=== PATIENT | female | born 1965 | race Two or more races ===

== ENCOUNTER 2021-03-22 23:22 | Inpatient (IN) | payer OTHER ==
[~2021-03-22] VITALS: Ht 154.9 cm; Wt 62.1 kg
--- NOTE | 2021-03-22 23:36 | NUR ---
PT BIBRA C/O NEAR SYNCOPAL EPISODE. PT AAOX4 BREATHING EVENLY AND UNLABORED. PER PT, SHE FELT "LIGHTHEADED AND NAUSEOUS, CHECKED HER BP AND IT WAS IN THE 80S". PT ATTACHED TO MONITOR AND POX. MD AT BEDSIDE. PT GIVEN BLANKET AND CALL LIGHT WITHIN REACH
--- NOTE | 2021-03-22 23:55 | NUR ---
LAB AT BEDSIDE
[2021-03-23] MEDS ORDERED: IV NS 0.9% 1,000 ML BAG IV ONE
[2021-03-23 00:11] LABS: BASOPHILS # (AUTO) 0.1 K/uL (0.0-0.2); BASOPHILS % (AUTO) 0.8 % (0.0-2.0); EOSINOPHILS % (AUTO) 3.1 % (0.0-6.0); HEMATOCRIT 29 % (33-45); HEMOGLOBIN 9.7 g/dL (11.5-14.8); LYMPHOCYTES # (AUTO) 2.6 K/uL (0.8-4.8); LYMPHOCYTES % (AUTO) 22.2 % (20.0-44.0); MEAN CORPUSCULAR HGB CONC 34 g/dl (31.0-36.0); MEAN CORPUSCULAR VOLUME 85 fL (82-100); MONOCYTES # (AUTO) 0.7 K/uL (0.1-1.30); MONOCYTES % (AUTO) 5.6 % (2.0-12.0); NEUTROPHILS % (AUTO) 68.3 % (43.0-81.0); PLATELET COUNT (AUTO) 404 K/uL (150-450); RED BLOOD CELL COUNT(AUTO) 3.37 MIL/uL (4.0-5.2); WHITE BLOOD COUNT (AUTO) 11.7 K/uL (4.3-11.0)
--- NOTE | 2021-03-23 00:22 | NUR ---
selina - [phone] kirsty [phone] - brother
--- NOTE | 2021-03-23 01:13 | NUR ---
PAGED DR MONACO FOR NEURO CONSULT
[2021-03-23 01:31] LABS: CALCIUM, SERUM 7.4 mg/dL (8.5-10.1); CREATININE 3.2 mg/dL (0.6-1.3)
[2021-03-23 01:37] LABS: ALBUMIN 2.8 g/dL (3.4-5.0); BILIRUBIN,TOTAL 0.1 mg/dL (0.2-1.0); TOTAL PROTEIN, SERUM 6.7 g/dL (6.4-8.2)
--- NOTE | 2021-03-23 01:41 | NUR ---
RE PAGED DR MONACO
[2021-03-23 01:43] LABS: POTASSIUM 4.6 mmol/L (3.5-5.1)
--- NOTE | 2021-03-23 02:01 | NUR ---
DR RESTREPO ON THE PHONE W/ DR MONACO
--- NOTE | 2021-03-23 02:16 | NUR ---
CALLED HOUSE SUP FOR BED
[2021-03-23] MEDS ORDERED: ASPIRIN 325 MG TABLET PO ONE (02:30)
--- NOTE | 2021-03-23 02:52 | NUR ---
gave report to Brien Cao rn for asher
[2021-03-23] MEDS ORDERED: ASPIRIN 325 MG TABLET ONE (02:53)
[2021-03-23] MEDS ORDERED: Z GUARD REMEDY 2 OZ OINT TP PRN (03:00)
[2021-03-23] MEDS ORDERED: MAGNESIUM HYDROXIDE 30 ML UDC PO PRN (03:00)
[2021-03-23] MEDS ORDERED: ACETAMINOPHEN 325 MG TABLET PO PRN (03:00)
[2021-03-23] MEDS ORDERED: IV NS 0.9% 1,000 ML IV ONE (03:00)
[2021-03-23] MEDS ORDERED: ZOLPIDEM TARTRATE 5 MG TABLET PO PRN (03:00)
[2021-03-23] MEDS ORDERED: ONDANSETRON HCL/PF 4 MG/2 ML VIAL IVP PRN (03:00)
[2021-03-23] MEDS ORDERED: MAG HYDROX/AL HYDROX/SIMETH 30 ML UDC PO PRN (03:00)
--- NOTE | 2021-03-23 03:05 | NUR ---
LANGUAGE THERAPIST NOTES PATIENT BROUGHT UP AT THIS TIME VIA STRETCHER. A/OX4. TAGALOG SPEAKING. NO S/S OF APPARENT DISTRESS AND DENIES PAIN AT THIS TIME. PATIENT UNABLE TO AMBULATE, BLE WEAK. TELE MONITOR READING NSR 78 BPM. PATIENT HAS TWO IV ACCESS. R.AC #20G- SL AND L.AC #20G RUNNING AT 75ML/HR ONCE. PATIENT HAS NO ADVANCED DIRECTIVES BUT WISHES TO BE FULL CODE. PER PATIENT SHE HAS NO KNOWN ALLERGIES. BELONGINGS CHECKED OFF-- PATIENT REPORTS HAVING UPPER DENTURES AND WEARS GLASSES. ID BAND ON PATIENT. SAFETY IN PLACE. DVT PUMP CONNECTED. C/O HUNGER-- GIVEN SNACKS. PATIENT ADMITTED FOR NSTEMI. V/S FOLLOWS: BP- 100/65, HR- 84, RR18, T-97.6, AND SATURATING @96% ON ROOM AIR. WILL CONTINUE TO MONITOR.
[2021-03-23 04:03] VITALS: BP 100/65
[2021-03-23 04:13] VITALS: BP 100/65
--- NOTE | 2021-03-23 05:06 | NUR ---
FORM PRESS OPERATOR NOTES PATIENT WAS CONCERN THAT FAMILY MEMBERS DO NOT KNOW WHERE SHE IS ADMITTED RIGHT NOW. PER PATIENT SHE LIVES WITH HER MOM WHO IS 80 Y/O AND SHE DOES NOT HAVE ANY CONTACT NUMBERS. PER PATIENT SHE HAS BROTHER HERE IN [place] BUT DOES NOT KNOW HIS PHONE NUMBER. PER PATIENT SHE ONLY KNOWS HER BROTHER'S NUMBER RESIDING IN [place]. CALLED KAVITHA (BROTHER IN [place]) ([phone]) AND TALKED TO HIM. MADE HIM KNOWN OF PATIENT CONDITION AND PER BROTHER, FAMILY KNOWS WHERE PATIENT IS RIGHT NOW AND BROTHER HERE IN [place] (KATHIE) IS GOING TO VISIT PATIENT. ASKED FOR KATHIE'S NUMBER ([phone]), KATHIE IS OFF AT 0530. WILL CALL LATER.
--- NOTE | 2021-03-23 05:12 | NUR ---
RN NOTE WILL PUT CONTACT NUMBER IN CHART. KATHIE (BROTHER) [phone].
--- NOTE | 2021-03-23 05:30 | NUR ---
RN NOTE LEFT A VOICEMAIL TO BROTHER, NOT ANSWERING PHONE CALL. LEFT HOSPITAL NUMBER WELL TO CALL BACK.
--- NOTE | 2021-03-23 06:46 | NUR ---
PICKLE MAKER CLOSING PATIENT IN BED A/OX4. NO S/S OF APPARENT DISTRESS. DENIES PAIN AT THIS TIME. PATIENT TELE MONITOR BEEN READING NSR 79 BPM THE WHOLE SHIFT. ALL NEEDS ATTENDED. NS @75CC/HR RUNNING STILL AT THIS TIME. ORDERED ONLY ONCE. WILL ENDORSE CARE TO MORNING SHIFT RN.
[2021-03-23 06:55] LABS: BASOPHILS % (AUTO) 0.3 % (0.0-2.0); EOSINOPHILS % (AUTO) 0.2 % (0.0-6.0); HEMATOCRIT 28 % (33-45); HEMOGLOBIN 9.5 g/dL (11.5-14.8); LYMPHOCYTES # (AUTO) 1.4 K/uL (0.8-4.8); LYMPHOCYTES % (AUTO) 10.3 % (20.0-44.0); MEAN CORPUSCULAR HGB CONC 34 g/dl (31.0-36.0); MEAN CORPUSCULAR VOLUME 86 fL (82-100); MONOCYTES # (AUTO) 0.2 K/uL (0.1-1.30); MONOCYTES % (AUTO) 1.3 % (2.0-12.0); NEUTROPHILS # (AUTO) 11.9 K/uL (1.8-8.9); NEUTROPHILS % (AUTO) 87.9 % (43.0-81.0); PLATELET COUNT (AUTO) 421 K/uL (150-450); RED BLOOD CELL COUNT(AUTO) 3.29 MIL/uL (4.0-5.2); WHITE BLOOD COUNT (AUTO) 13.6 K/uL (4.3-11.0)
[2021-03-23 07:16] LABS: CALCIUM, SERUM 7.4 mg/dL (8.5-10.1); MAGNESIUM 2.2 mg/dL (1.8-2.4); PHOSPHORUS 4.5 mg/dL (2.5-4.9); POTASSIUM 5.1 mmol/L (3.5-5.1)
--- NOTE | 2021-03-23 07:43 | NUR ---
COMPUTER PUBLISHER OPENING NOTE Patient in bed, asleep. A/O x 4. On room air, breathing evenly and unlabored. No SOB or s/s of distress noted. IV access on RAC #20, SL and AC #20 NS running at 75 ml/hr, both intact and patent. On tele monitoring showing SR at 90s. Safety precautions in place: bed inl ow, locked position, siderails up x 2, call light within reach. Will continue to monitor.
[2021-03-23 08:00] VITALS: BP 144/68
[2021-03-23] MEDS ORDERED: NPH,100I SQ (08:15)
[2021-03-23] MEDS ORDERED: LISI40TA13 PO (08:15)
[2021-03-23] MEDS ORDERED: METO25TA4 PO (08:15)
[2021-03-23] MEDS ORDERED: ATOR40TA PO (08:15)
[2021-03-23] MEDS ORDERED: NIFE60TA73 PO (08:15)
[2021-03-23] MEDS: ASPIRIN 81 MG TAB.CHEW PO SCH (08:27)
[2021-03-23] MEDS: METOPROLOL SUCCINATE 25 MG TAB.SR.24H PO SCH (08:28)
[2021-03-23] MEDS: NIFEdipine XL (30MG) 30 MG TAB PO SCH (08:29)
--- NOTE | 2021-03-23 12:43 | NUR ---
RN NOTE MD ORDERED MODERATE SLIDING SCALE FOR COVERAGE DURING PATIENT'S STAY. CRITICAL LAB VALUE OF TROPONIN 4.045 REPLAYED TO MD AND CARDIOLOGY. WILL CONTINUE TO MONITOR
--- NOTE | 2021-03-23 12:50 | NUR ---
RN NOTE DR EUGENE GAVE NEW ORDER TO START HEPARIN DRIP PER PROTOCOL
[2021-03-23] MEDS ORDERED: DEXTROSE 50%-WATER 50 ML DISP.SYRIN IV PRN (13:00)
[2021-03-23] MEDS ORDERED: HEPARIN SODIUM, PORCINE 5000 UNITS/1 ML VIAL IV ONE (14:30)
[2021-03-23] MEDS: HEPARIN INFUSION/D5W 500 ML IV PRN (15:09)
[2021-03-23 16:00] VITALS: BP 142/62
[2021-03-23] MEDS: BLOOD SUGAR DIAGNOSTIC 1 EACH STRIP VI SCH ×2 (17:01→22:14)
[2021-03-23] MEDS: ATORVASTATIN 40 MG TABLET PO SCH (17:01)
[2021-03-23] MEDS: INSULIN REGULAR, HUMAN 100 UNIT/ML 3 ML VIAL SQ PRN (17:01)
--- NOTE | 2021-03-23 18:37 | NUR ---
CAD ADMINISTRATOR CLOSING NOTE Patient in bed, awake. A/O x 4, able to make needs known. Stable on room air, breathing evenly and unlabored. No SOB or s/s of distress noted. IV access LAC #20G intact and patent and RAC #20G on Heparin drip at 930 units/hr. On tele monitoring showing SR at 87. Due meds given. Safety precautions maintained: bed in low, locked position, siderails up x 2, call light within reach. Will endorse to table games shift manager nurse for GABRIELLE.
--- NOTE | 2021-03-23 19:30 | NUR ---
FORK REPAIRER OPENING NOTES PATIENT AWAKE IN BED, ALERT/ORIENTED X 4, PT ABLE TO MAKE NEEDS KNOWN. PATIENT DENIES PAIN AT THIS TIME. PT STABLE ON RA, NO S/S OF DISTRESS OR SOB NOTED, BREATHING EVEN AND UNLABORED. IV ACCESS ON LEFT AC #20G INTACT AND SALINE LOCKED, RIGHT AC #20G INTACT AND RUNNING HEPARIN DRIP AT 930 UNITS/HR. PATIENT ON EXTERNAL STRING WINDING MACHINE OPERATOR READING SINUS RHYTHM, HR: 70'S. SAFETY PRECAUTIONS IN PLACE: CALL LIGHT WITHIN REACH, BED LOCKED IN LOW POSITION, SIDE RAILS UP X 2, BED ALARM ON, CALL LIGHT AND TABLE WITHIN REACH. WILL CONTINUE TO MONITOR PATIENT
[2021-03-23 20:00] VITALS: BP 140/78
[2021-03-23 20:03] LABS: THYROID STIMULATING HORMONE 2.528 uIU/mL (0.358-3.74)
[2021-03-23] MEDS: *INSULIN REGULAR(HUMULIN R)HUM 100 UNIT/ML VIAL SQ PRN (22:16)
--- NOTE | 2021-03-23 23:00 | NUR ---
LOAN COUNSELOR NOTE APTT = 57.9. NO CHANGES PER WEIGHT BASED HEPARIN PROTOCOL. NEXT APTT LAB DRAW SCHEDULED FOR 03/24/21 10 AM
[2021-03-24] VITALS: BP 137/76
[2021-03-24 04:00] VITALS: BP 142/70
--- NOTE | 2021-03-24 06:19 | NUR ---
SLOT ATTENDANT CLOSING NOTES PATIENT SLEEPING IN BED, PT APPEARS COMFORTABLE AND NOT IN ANY DISTRESS. NO SIGNIFICANT CHANGES THROUGHOUT SHIFT. PT STABLE ON RA, NO S/S OF DISTRESS OR SOB NOTED, BREATHING EVEN AND UNLABORED. IV ACCESS ON LEFT AC #20G INTACT AND SALINE LOCKED, RIGHT AC #20G INTACT AND RUNNING HEPARIN DRIP AT 930 UNITS/HR. PATIENT ON EXTERNAL SUPERINTENDENT DIVISION READING SINUS RHYTHM, HR: 66. MEDICATIONS GIVEN ORDERED, PT NEEDS MET THROUGHOUT SHIFT. SAFETY PRECAUTIONS IN PLACE: CALL LIGHT WITHIN REACH, BED LOCKED IN LOW POSITION, SIDE RAILS UP X 2, BED ALARM ON, CALL LIGHT AND TABLE WITHIN REACH. WILL ENDORSE TO DAY SHIFT NURSE FOR CONTINUITY OF CARE
[2021-03-24 06:34] LABS: BASOPHILS # (AUTO) 0.1 K/uL (0.0-0.2); BASOPHILS % (AUTO) 1.2 % (0.0-2.0); HEMATOCRIT 27 % (33-45); LYMPHOCYTES # (AUTO) 3.4 K/uL (0.8-4.8); LYMPHOCYTES % (AUTO) 32.3 % (20.0-44.0); MEAN CORPUSCULAR HGB CONC 34 g/dl (31.0-36.0); MEAN CORPUSCULAR VOLUME 88 fL (82-100); MONOCYTES # (AUTO) 0.6 K/uL (0.1-1.30); MONOCYTES % (AUTO) 5.4 % (2.0-12.0); NEUTROPHILS % (AUTO) 57.1 % (43.0-81.0); PLATELET COUNT (AUTO) 355 K/uL (150-450); RED BLOOD CELL COUNT(AUTO) 3.05 MIL/uL (4.0-5.2); WHITE BLOOD COUNT (AUTO) 10.5 K/uL (4.3-11.0)
[2021-03-24] MEDS: BLOOD SUGAR DIAGNOSTIC 1 EACH STRIP VI SCH ×4 (07:07→21:27)
--- NOTE | 2021-03-24 07:10 | NUR ---
RN NOTES PATIENT WAS SEEN IN BED RESTING, EYES CLOSED, ABLE TO BE AWAKENED. A/O X4, ABLE TO MAKE NEEDS KNOWN. BREATHING EVEN AND UNLABORED, TOLERATING ROOM AIR. IV LINE INTACT AND PATENT. HEPARIN DRIP CURRENTLY INFUSING AT 930U/HR; NO BLEEDING NOTED. PATIENT ABLE TO AMBULATE W/ SBA. SAFETY MEASURES IN PLACE. WILL CONTINUE TO MONITOR.
[2021-03-24 07:22] LABS: ALBUMIN 2.4 g/dL (3.4-5.0); BILIRUBIN,TOTAL 0.2 mg/dL (0.2-1.0); CALCIUM, SERUM 7.8 mg/dL (8.5-10.1); CREATININE 2.6 mg/dL (0.6-1.3); MAGNESIUM 2.5 mg/dL (1.8-2.4); PHOSPHORUS 5.8 mg/dL (2.5-4.9); POTASSIUM 4.4 mmol/L (3.5-5.1); TOTAL PROTEIN, SERUM 6.2 g/dL (6.4-8.2)
[2021-03-24] MEDS: ASPIRIN 81 MG TAB.CHEW PO SCH (08:13)
[2021-03-24] MEDS: METOPROLOL SUCCINATE 25 MG TAB.SR.24H PO SCH (08:14)
[2021-03-24] MEDS: NIFEdipine XL (30MG) 30 MG TAB PO SCH (08:14)
[2021-03-24 08:38] VITALS: BP 141/74
--- NOTE | 2021-03-24 09:20 | NUR ---
RN NOTES DR. GARCIA MADE AWARE OF TROPONIN RESULT; ALREADY SEEN AND WILL DISCUSS W/ DR. EUGENE.
--- NOTE | 2021-03-24 09:30 | NUR ---
RN NOTES PATIENT SEEN BY DR. GARCIA AND MADE AWARE OF PLAN OF CARE
[2021-03-24] MEDS: INSULIN REGULAR, HUMAN 100 UNIT/ML 3 ML VIAL SQ PRN ×2 (12:01→17:45)
--- NOTE | 2021-03-24 13:30 | NUR ---
RN NOTES RECEIVED PTT RESULT OF 53.8. CONTINUE SAME RATE OF 930U/HR PER HEPARIN PROTOCOL, NEXT PTT 03/25/21 IN AM. NO S/SX OF BLEEDING. WILL CONTINUE TO MONITOR.
[2021-03-24 16:00] VITALS: BP 134/74
[2021-03-24] MEDS: ATORVASTATIN 40 MG TABLET PO SCH (17:08)
[2021-03-24] MEDS: HEPARIN INFUSION/D5W 500 ML IV PRN (18:03)
--- NOTE | 2021-03-24 19:44 | NUR ---
RN NOTES PATIENT IN BED RESTING, AWAKE AND VERBALLY RESPONSIVE. BREATHING EVEN AND UNLABORED. CONTINUES ON HEPARIN DRIP W/ CURRENT RATE W/O CHANGES. DUE MEDS GIVEN. AMBULATES TO BATHROOM W/ STEADY GAIT. SAFETY MEASURES MAINTAINED. ENDORSED TO DIRECTOR OF PLANT OPERATIONS RN FOR GABRIELLE.
[2021-03-24 20:00] VITALS: BP 147/74
[2021-03-24] MEDS ORDERED: METOPROLOL TARTRATE 50 MG TABLET PO SCH (21:00)
[2021-03-25] VITALS (7 sets, daily range): BP systolic 137–150; BP diastolic 60–76
--- NOTE | 2021-03-25 06:00 | NUR ---
CLAY DRY PRESS HELPER NOTES BS CHECKED 155. PT REFUSED TO HAVE INSULIN AT THIS TIME. PT SAID "I JUST HAD CRACKERS AND APPLE JUICE BECAUSE I THINK MY SUGAR WAS LOW." WILL CONTINUE TO MONITOR.
--- NOTE | 2021-03-25 06:01 | NUR ---
LEATHER DRIER NOTES AWAKE & RESPONSIVE. NOT IN ANY DISTRESS. NO SOB NOTED. DENIES ANY PAIN OR DISCOMFORT AT THIS TIME. ON TELE SR @ 76 WITH HEPARIN DRIP INFUSING WELL. MONITORED ACCORDINGLY. CALL LIGHT WITHIN REACH. BED IN LOWEST POSITION. SR UP X 2 FOR SAFETY. WILL ENDORSE TO NEXT SHIFT.
[2021-03-25] MEDS: BLOOD SUGAR DIAGNOSTIC 1 EACH STRIP VI SCH ×4 (06:26→21:29)
[2021-03-25 07:01] LABS: BASOPHILS # (AUTO) 0.1 K/uL (0.0-0.2); BASOPHILS % (AUTO) 0.6 % (0.0-2.0); EOSINOPHILS % (AUTO) 2.3 % (0.0-6.0); HEMATOCRIT 27 % (33-45); HEMOGLOBIN 9.1 g/dL (11.5-14.8); LYMPHOCYTES # (AUTO) 2.1 K/uL (0.8-4.8); LYMPHOCYTES % (AUTO) 17.8 % (20.0-44.0); MEAN CORPUSCULAR HGB CONC 34 g/dl (31.0-36.0); MEAN CORPUSCULAR VOLUME 86 fL (82-100); MONOCYTES # (AUTO) 0.5 K/uL (0.1-1.30); MONOCYTES % (AUTO) 4.5 % (2.0-12.0); NEUTROPHILS # (AUTO) 8.7 K/uL (1.8-8.9); NEUTROPHILS % (AUTO) 74.8 % (43.0-81.0); PLATELET COUNT (AUTO) 336 K/uL (150-450); RED BLOOD CELL COUNT(AUTO) 3.13 MIL/uL (4.0-5.2); WHITE BLOOD COUNT (AUTO) 11.6 K/uL (4.3-11.0)
--- NOTE | 2021-03-25 07:11 | NUR ---
RN NOTES PATIENT WAS SEEN IN BED RESTING, EYES CLOSED, ABLE TO BE AWAKENED. A/O X4, ABLE TO MAKE NEEDS KNOWN. BREATHING EVEN AND UNLABORED, TOLERATING ROOM AIR. IV LINE INTACT AND PATENT. HEPARIN DRIP CURRENTLY INFUSING AT 930U/HR; NO BLEEDING NOTED. SAFETY MEASURES IN PLACE. WILL CONTINUE TO MONITOR.
[2021-03-25 07:21] LABS: ALBUMIN 2.4 g/dL (3.4-5.0); BILIRUBIN,TOTAL 0.2 mg/dL (0.2-1.0); CALCIUM, SERUM 7.5 mg/dL (8.5-10.1); CREATININE 2.4 mg/dL (0.6-1.3); MAGNESIUM 2.2 mg/dL (1.8-2.4); PHOSPHORUS 4.3 mg/dL (2.5-4.9); POTASSIUM 4.2 mmol/L (3.5-5.1); TOTAL PROTEIN, SERUM 6.3 g/dL (6.4-8.2)
--- NOTE | 2021-03-25 08:07 | NUR ---
RN NOTES RECEIVED PTT RESULT OF 51.8. NO CHANGE IN RATE PER HEPARIN PROTOCOL FOR ACS; CONTINUE SAME RATE OF 930 UNITS/HR. PTT ON 03/26/21 IN AM. NO S/SX OF BLEEDING. PHARMACY MADE AWARE.
[2021-03-25] MEDS: ASPIRIN 81 MG TAB.CHEW PO SCH (08:32)
[2021-03-25] MEDS: NIFEdipine XL (30MG) 30 MG TAB PO SCH (08:33)
[2021-03-25] MEDS: METOPROLOL TARTRATE 50 MG TABLET PO SCH ×2 (08:34→21:29)
[2021-03-25] MEDS: INSULIN REGULAR, HUMAN 100 UNIT/ML 3 ML VIAL SQ PRN ×2 (12:17→17:44)
[2021-03-25] MEDS: ATORVASTATIN 40 MG TABLET PO SCH (17:35)
[2021-03-25] MEDS: HEPARIN INFUSION/D5W 500 ML IV PRN (18:42)
--- NOTE | 2021-03-25 18:58 | NUR ---
RN NOTES PATIENT IN BED RESTING, AWAKE AND VERBALLY RESPONSIVE. BREATHING EVEN AND UNLABORED. CONTINUES ON HEPARIN DRIP W/ CURRENT RATE W/O CHANGES. DUE MEDS GIVEN. AMBULATES TO BATHROOM W/ STEADY GAIT. TRANSFERRED TO ROOM 326-1. SAFETY MEASURES MAINTAINED. WILL ENDORSE TO FURNITURE FINISHER RN FOR GABRIELLE.
--- NOTE | 2021-03-25 19:10 | NUR ---
RN NOTES RECEIVED REPORT FROM MORNING NURSE. PATIENT IN BED A/O X4 ABLE TO MAKE NEEDS KNOWN. WITH IV ACCESS ON L AC PATENT FLUSHES WELL. WITH ON GOING HEPARIN DRIP AT 930 UNITS/HR AT 18.6 ML/HR. NO BLEEDING NOTED. NO SOB, NO DISTRESS, NO PAIN AT THIS TIME. ALL SAFETY MEASURES IN PLACE, HOB ELEVATED, BED ON LOWEST POSITION AND LOCKED. CALL LIGHT WITHIN REACH. WILL CONTINUE TO MONITOR CLOSELY.
[2021-03-25] MEDS: *INSULIN REGULAR(HUMULIN R)HUM 100 UNIT/ML VIAL SQ PRN (21:33)
[2021-03-26] VITALS (8 sets, daily range): BP systolic 128–148; BP diastolic 48–67
--- NOTE | 2021-03-26 06:50 | NUR ---
RN NOTES PATIENT IN BED NO SOB, NO DISTRESS. STILL ON CONTINUOS HEPARIN DRIP AT 930 UNITS/HR AT 18.6 CC/HR. NO BLEEDING NOTED. ALL DUE MEDS GIVEN ORDERED. ALL SAFETY MEASURES IN PLACE, HOB ELEVATED, BED IN LOWEST POSITION AND LOCKED. ALL NEEDS ATTENDED PROMPTLY. ENDORSED
--- NOTE | 2021-03-26 07:30 | NUR ---
RN OPENING TELE NOTES; RECEIVED PATIENT IN BED AWAKE. ALERT AND ORIENTED TIMES 4.BREATHS IN ROOM AIR WITHOUT ANY DIFFICULTY. NO SHORTNESS OF BREATH, NO SOB NOTED. TELE RS=64.ON HEPARIN DRIP , NO BLEEDING NOTED.IV SITE ON THE LEFT HAND G20 INTACT.NO BLEEDING NO SWELLING NOTED.SAFETY PRECAUTIONS IN PLACE. BED IN LOWEST POSITION AND LOCKED, TABLE AND CALL LIGHT IN REACH. WILL CONTINUE TO MONITOR.
[2021-03-26 07:35] LABS: BASOPHILS # (AUTO) 0.1 K/uL (0.0-0.2); BASOPHILS % (AUTO) 0.7 % (0.0-2.0); EOSINOPHILS % (AUTO) 1.9 % (0.0-6.0); HEMATOCRIT 27 % (33-45); HEMOGLOBIN 9.2 g/dL (11.5-14.8); LYMPHOCYTES # (AUTO) 2.3 K/uL (0.8-4.8); LYMPHOCYTES % (AUTO) 20.3 % (20.0-44.0); MEAN CORPUSCULAR HGB CONC 33 g/dl (31.0-36.0); MEAN CORPUSCULAR VOLUME 85 fL (82-100); MONOCYTES # (AUTO) 0.6 K/uL (0.1-1.30); MONOCYTES % (AUTO) 5.2 % (2.0-12.0); NEUTROPHILS # (AUTO) 8.3 K/uL (1.8-8.9); NEUTROPHILS % (AUTO) 71.9 % (43.0-81.0); PLATELET COUNT (AUTO) 335 K/uL (150-450); RED BLOOD CELL COUNT(AUTO) 3.23 MIL/uL (4.0-5.2); WHITE BLOOD COUNT (AUTO) 11.5 K/uL (4.3-11.0)
[2021-03-26] MEDS: BLOOD SUGAR DIAGNOSTIC 1 EACH STRIP VI SCH ×4 (07:43→21:03)
[2021-03-26] MEDS: INSULIN REGULAR, HUMAN 100 UNIT/ML 3 ML VIAL SQ PRN (07:44)
[2021-03-26] MEDS: HEPARIN INFUSION/D5W 500 ML IV PRN ×2 (08:25→21:52)
[2021-03-26 08:35] LABS: CALCIUM, SERUM 8.3 mg/dL (8.5-10.1); CREATININE 2.4 mg/dL (0.6-1.3); MAGNESIUM 2.3 mg/dL (1.8-2.4); PHOSPHORUS 5.5 mg/dL (2.5-4.9); POTASSIUM 4.1 mmol/L (3.5-5.1)
[2021-03-26] MEDS: ASPIRIN 81 MG TAB.CHEW PO SCH (09:15)
[2021-03-26] MEDS: METOPROLOL TARTRATE 50 MG TABLET PO SCH ×2 (09:16→20:50)
[2021-03-26] MEDS: NIFEdipine XL (30MG) 30 MG TAB PO SCH (09:16)
[2021-03-26] MEDS ORDERED: LOPERAMIDE HCL (2 MG CAP) 2 MG CAPSULE PO PRN (10:30)
--- NOTE | 2021-03-26 11:00 | NUR ---
RN NOTES PATIENT HAS HAD LOOSE BOWEL MOVEMENT X 3 IN AM AND X3 LAST NIGHT, DR. GARCIA MADE AWARE WITH ORDER MADE AND CARRIED OUT.
[2021-03-26] MEDS: *INSULIN REGULAR(HUMULIN R)HUM 100 UNIT/ML VIAL SQ PRN ×2 (17:42→21:04)
[2021-03-26] MEDS: ATORVASTATIN 40 MG TABLET PO SCH (18:17)
--- NOTE | 2021-03-26 18:34 | NUR ---
RN CLOSING TELE NOTES; PATIENT IN BED AWAKE. ALERT AND ORIENTED TIMES 4.BREATHS IN ROOM AIR WITHOUT ANY DIFFICULTY. NO SHORTNESS OF BREATH, NO SOB NOTED. TELE RS=73. PATIENT ON HEPARIN DRIP @ 930 UNITS /HR-18.6ML/HR, .IV SITE ON THE LEFT HAND G20 INTACT.NO BLEEDING NO SWELLING NOTED. NO SIGNS AND SYMPTOMS OF BLEEDING NOTED .SAFETY PRECAUTIONS IN PLACE. BED IN LOWEST POSITION AND LOCKED, TABLE AND CALL LIGHT IN REACH. DUE MEDS GIVEN .ALL NEEDS ATTENDED. WILL ENDORSE TO ONCOMING NURSE FOR GABRIELLE.
[2021-03-26 19:15] LABS: BILIRUBIN,URINE NEGATIVE (NEGATIVE); COLOR,URINE YELLOW (YELLOW); LEUKOCYTE ESTERASE ,URINE NEGATIVE (NEGATIVE); NITRITE, URINE NEGATIVE (NEGATIVE); PROTEIN,URINE >=300 mg/dl (NEGATIVE); UGLUCOSE 100 MG/DL mg/dL (NEGATIVE); UROBILINOGEN,URINE 0.2 EU/dL (0.2)
[2021-03-26 19:28] LABS: CREATININE, URINE 103.6 MG/DL (30.0-125.0); URINE TOTAL PROTEIN 306.5 mg/dL (0-11.9)
[2021-03-26 19:35] LABS: BACTERIA,URINE 1+ /HPF (None Seen); RBC,URINE 0-2 /HPF (0-2)
[2021-03-26 19:36] LABS: HYALINE CASTS, URINE Few /LPF (None Seen); MUCUS,URINE Few /LPF (None Seen); SQUAMOUS EPITHELIAL CELL,UR Moderate /HPF (None Seen); URINE AMORPHOUS URATE Moderate /HPF (None Seen)
--- NOTE | 2021-03-26 19:40 | NUR ---
TELE/RN OPENING NOTE RECEIVED PATIENT SLEEPING IN BED. ALERT AND ORIENTED X 4. ABLE TO MAKE NEEDS KNOWN. DENIES PAIN AT THIS TIME. CONTINUES ON ROOM AIR WITH NO S/SX OF RESPIRATORY DISTRESS NOTED. IV ACCESS TO LEFT AC #20G INTACT AND PATENT. CONTINUES ON IV HEPARIN DRIP @ 930UNITS/HR WITH NO S/SX OF BLEEDING NOTED. PATIENT IS AMBULATORY WITH STEADY GAIT. CALL LIGHT WITHIN REACH. ASPIRATION, FALL AND SAFETY PRECAUTIONS MAINTAINED. WILL CONTINUE TO MONITOR.
--- NOTE | 2021-03-26 21:00 | NUR ---
TELE/RN NOTE PATIENTS BLOOD GLUCOSE LEVEL IS 136. PATIENT REFUSING INSULINS SLIDING SCALE AT THIS TIME. EXPLAINED RISKS AND BENEFITS WITH PATIENT CONTINUING TO REFUSE. WILL CONTINUE TO MONITOR.
[2021-03-27] VITALS (10 sets, daily range): BP systolic 119–143; BP diastolic 60–74
[2021-03-27] MEDS: BLOOD SUGAR DIAGNOSTIC 1 EACH STRIP VI SCH ×4 (06:25→21:41)
--- NOTE | 2021-03-27 06:38 | NUR ---
TELE/RN CLOSING NOTE PATIENT CURRENTLY SLEEPING IN BED. ALERT AND ORIENTED X 4. ABLE TO MAKE NEEDS KNOWN. DENIES PAIN AT THIS TIME. CONTINUES ON ROOM AIR WITH NO S/SX OF RESPIRATORY DISTRESS NOTED. IV ACCESS TO LEFT AC #20G INTACT AND PATENT. CONTINUES ON IV HEPARIN DRIP @ 930UNITS/HR WITH NO S/SX OF BLEEDING NOTED. PATIENT IS AMBULATORY WITH STEADY GAIT. CALL LIGHT WITHIN REACH. ASPIRATION, FALL AND SAFETY PRECAUTIONS MAINTAINED. WILL ENDORSE PLAN OF CARE TO ONCOMING SHIFT.
[2021-03-27 06:50] LABS: BASOPHILS # (AUTO) 0.1 K/uL (0.0-0.2); BASOPHILS % (AUTO) 0.7 % (0.0-2.0); EOSINOPHILS % (AUTO) 3.5 % (0.0-6.0); HEMATOCRIT 26 % (33-45); HEMOGLOBIN 8.8 g/dL (11.5-14.8); LYMPHOCYTES % (AUTO) 35.9 % (20.0-44.0); MEAN CORPUSCULAR HGB CONC 33 g/dl (31.0-36.0); MEAN CORPUSCULAR VOLUME 86 fL (82-100); MONOCYTES # (AUTO) 0.4 K/uL (0.1-1.30); MONOCYTES % (AUTO) 4.9 % (2.0-12.0); NEUTROPHILS # (AUTO) 4.6 K/uL (1.8-8.9); PLATELET COUNT (AUTO) 321 K/uL (150-450); RED BLOOD CELL COUNT(AUTO) 3.06 MIL/uL (4.0-5.2); WHITE BLOOD COUNT (AUTO) 8.4 K/uL (4.3-11.0)
[2021-03-27 06:57] LABS: CALCIUM, SERUM 8.3 mg/dL (8.5-10.1); CREATININE 2.5 mg/dL (0.6-1.3); POTASSIUM 4.3 mmol/L (3.5-5.1)
--- NOTE | 2021-03-27 07:25 | NUR ---
FAMILY PRESERVATION WORKER OPENING NOTES RECEIVED PT IN BED RESTING WITH NO S/SX OF ACUTE RESPIRATORY DISTRESS. PT HAS A L AC 20 G RUNNING HEPARIN @930 UNITS/HR. SAFETY MEASURES IN PLACE WITH BED IN LOWEST LOCKED POSITION, SIDE RAILS UP X3, AND CALL LIGHT WITHIN REACH.
[2021-03-27] MEDS: ASPIRIN 81 MG TAB.CHEW PO SCH (09:06)
[2021-03-27] MEDS: NIFEdipine XL (30MG) 30 MG TAB PO SCH (09:06)
[2021-03-27] MEDS: METOPROLOL TARTRATE 50 MG TABLET PO SCH ×2 (09:07→21:10)
--- NOTE | 2021-03-27 11:07 | NUR ---
ENTRY LEVEL ACCOUNTING CLERK NOTE LAB CALLED WITH TROPONIN LEVEL 10.677
[2021-03-27] MEDS: *INSULIN REGULAR(HUMULIN R)HUM 100 UNIT/ML VIAL SQ PRN ×3 (11:55→21:43)
[2021-03-27] MEDS: ATORVASTATIN 40 MG TABLET PO SCH (17:26)
--- NOTE | 2021-03-27 18:52 | NUR ---
REHAB ASSISTANT CLOSING NOTE PT RESTING COMFORTABLY IN SEMI-FOWLERS POSITION ON RA WITH NO S/SX OF ACUTE RESPIRATORY DISTRESS AT THIS TIME. PT HAS HEPARIN RUNNING @930U/HR PER PROTOCOL, TO BE TURNED OFF @0500 03/28. PROCEDURAL CONSENT SIGNED IN THE CHART AND PT IS NPO AFTER MIDNIGHT EXCEPT MEDS. SAFETY MEASURES IN PLACE WITH BED IN LOWEST LOCKED POSITION, CALL LIGHT WITHIN REACH AND SIDE RAILS UP X2.
--- NOTE | 2021-03-27 19:20 | NUR ---
television writer opening notes Received Pt from morning nurse. Pt is sitting in bed comfortably watching TV. Pt is alert and orientedX4. Respiration is normal in room air. No SOB. No S/S of distress noted. VS is stable. Tele monitor showed SR hr at 75. IV site at LAC# 20 is clean, intact and infuising well Heparin drip @ 930 units/hr. Safety precautions is maintained. Bed at low position, brakes locked, head of bed elevated, side rails upX3 and call light is within reach. Will continue to monitor.
--- NOTE | 2021-03-27 21:43 | NUR ---
RN notes Pt's blood sugar HS is 134. Held per Pt's request. Pt is going for procedure in am. Will continue to monitor.
--- NOTE | 2021-03-27 22:53 | NUR ---
RN notes Pt signed the consent for Left heart cardiac catherization. Pt verbalize understanding.
[2021-03-28] VITALS: BP 131/67
--- NOTE | 2021-03-28 | NUR ---
RN notes Pt is NPO. Pt verbalize understanding. Will continue to monitor.
[2021-03-28] MEDS: HEPARIN INFUSION/D5W 500 ML IV PRN (00:04)
[2021-03-28 04:00] VITALS: BP 142/72
[2021-03-28 04:07] VITALS: BP 142/72
--- NOTE | 2021-03-28 05:00 | NUR ---
RN notes Heparin drip stop at 0500 per MD ordered. Charge nurse is aware and informed. Pt is aware and informed.
--- NOTE | 2021-03-28 05:39 | NUR ---
RN notes Received a phone call from tanbark laborer [employer] to get INR stat. MD Ordered PT/INR. Charge nurse is aware and informed.
--- NOTE | 2021-03-28 06:00 | NUR ---
RN notes OR nurses from cath lab radiology technician at the bedside with Pt.
[2021-03-28 06:19] LABS: BASOPHILS # (AUTO) 0.1 K/uL (0.0-0.2); BASOPHILS % (AUTO) 0.7 % (0.0-2.0); EOSINOPHILS % (AUTO) 3.6 % (0.0-6.0); HEMATOCRIT 26 % (33-45); LYMPHOCYTES % (AUTO) 29.7 % (20.0-44.0); MEAN CORPUSCULAR HGB CONC 34 g/dl (31.0-36.0); MEAN CORPUSCULAR VOLUME 85 fL (82-100); MONOCYTES # (AUTO) 0.5 K/uL (0.1-1.30); NEUTROPHILS # (AUTO) 6.1 K/uL (1.8-8.9); PLATELET COUNT (AUTO) 362 K/uL (150-450); RED BLOOD CELL COUNT(AUTO) 3.09 MIL/uL (4.0-5.2)
[2021-03-28 06:30] LABS: CALCIUM, SERUM 7.2 mg/dL (8.5-10.1); CREATININE 2.4 mg/dL (0.6-1.3)
--- NOTE | 2021-03-28 06:30 | NUR ---
RN notes Pt is going to hemodialysis lab technician with 2 RN, Seth RN, and AMALIA Hough. VS is stable. Consent is signed and check list is done. NPO since midnight.
[2021-03-28] MEDS: INSULIN REGULAR, HUMAN 100 UNIT/ML 3 ML VIAL SQ PRN (06:36)
[2021-03-28] MEDS: BLOOD SUGAR DIAGNOSTIC 1 EACH STRIP VI SCH ×3 (06:36→17:29)
[2021-03-28] MEDS ORDERED: IV NS 0.9% 1,000 ML ONE (06:42)
[2021-03-28] MEDS ORDERED: FENTANYL PF 100MCG/2ML AMPUL ONE (06:42)
[2021-03-28] MEDS ORDERED: MIDAZOLAM HCL 2 MG/2ML VIAL ONE (06:42)
[2021-03-28] MEDS ORDERED: LIDOCAINE HCL/MPF 1% 30 ML VIAL IJ ONE (06:43)
[2021-03-28] MEDS ORDERED: IODIXANOL 150 ML IV ONE (06:43)
[2021-03-28] MEDS ORDERED: NITROGLYCERIN IN 5 % DEXTROSE 250 ML IV ONE (06:45)
--- NOTE | 2021-03-28 07:00 | NUR ---
television schedule coordinator closing notes Endorsed to morning nurse Pt is in foundry laborer coreroom.
[2021-03-28 08:00] VITALS: BP 145/69
--- NOTE | 2021-03-28 08:15 | NUR ---
NETWORKS COMPUTER CONSULTANT OPENING NOTES RECEIVED PATIENT FROM [facility] ENDORSED BY NURSE BOLDEN VIA HOSPITAL BED. PATIENT IS AWAKE AND A/O X4. ON ROOM AIR TOLERATING WELL. NO SOB NOTED. NOT IN DISTRESS. WITH STABLE VITAL SIGNS. WITH IV ACCESS AT LEFT AC G20 WITH NS AT 50ML/HR FOR 6HRS ORDERED. DISCONTINUED HEPARIN DRIP. ON TELEMONITOR CURRENTLY READING SINUS RHYTHM AT 73BPM. SAFETY MEASURES IN PLACE. CALL LIGHT WITHIN REACH. BED ON LOWEST AND LOCKED POSITION, SIDE RAILS UP X2. WILL CONTINUE TO MONITOR.
--- NOTE | 2021-03-28 08:35 | NUR ---
RN NOTE VITAL SIGNS CHECKED- STABLE. REMOVED AIR FROM TR BAND AT 3ML. TR BAND IS INTACT. SPO2 95% TAKEN AT RIGHT INDEX FINGER OF ACCESS SITE. NO BLEEDING OCCURS DURING REMOVAL. [facility] WNL. WILL MONITOR.
[2021-03-28] MEDS: METOPROLOL TARTRATE 50 MG TABLET PO SCH (08:50)
[2021-03-28] MEDS: ASPIRIN 81 MG TAB.CHEW PO SCH (08:50)
[2021-03-28] MEDS: NIFEdipine XL (30MG) 30 MG TAB PO SCH (08:50)
--- NOTE | 2021-03-28 08:50 | NUR ---
RN NOTE VITAL SIGNS CHECKED- STABLE. REMOVED AIR FROM TR BAND AT 3ML FOR THE SECOND TIME. TR BAND IS INTACT. SPO2 95% TAKEN AT RIGHT INDEX FINGER OF ACCESS SITE. NO BLEEDING OCCURS DURING REMOVAL. [facility] WNL. WILL MONITOR.
--- NOTE | 2021-03-28 09:05 | NUR ---
RN NOTE VITAL SIGNS CHECKED- STABLE. REMOVED AIR FROM TR BAND AT 3ML FOR THE 3RD TIME. TR BAND IS INTACT. SPO2 96% TAKEN AT RIGHT INDEX FINGER OF ACCESS SITE. NO BLEEDING OCCURS DURING REMOVAL. [facility] WNL. WILL MONITOR.
--- NOTE | 2021-03-28 09:20 | NUR ---
RN NOTE VITAL SIGNS CHECKED- STABLE. REMOVED AIR FROM TR BAND AT 3ML FOR THE 4TH TIME. TR BAND IS INTACT. SPO2 97% TAKEN AT RIGHT INDEX FINGER OF ACCESS SITE. NO BLEEDING OCCURS DURING REMOVAL. [facility] WNL. WILL MONITOR.
--- NOTE | 2021-03-28 09:35 | NUR ---
RN NOTE VITAL SIGNS CHECKED- STABLE. REMOVED AIR FROM TR BAND AT 3ML FOR THE 5TH TIME. TR BAND IS INTACT. SPO2 98% TAKEN AT RIGHT INDEX FINGER OF ACCESS SITE. NO BLEEDING OCCURS DURING REMOVAL. [facility] WNL. TR BAND REMOVED. WILL MONITOR.
[2021-03-28] MEDS: *INSULIN REGULAR(HUMULIN R)HUM 100 UNIT/ML VIAL SQ PRN (11:48)
[2021-03-28 12:00] VITALS: BP 138/68
[2021-03-28 16:00] VITALS: BP 132/67
[2021-03-28] MEDS: ATORVASTATIN 40 MG TABLET PO SCH (17:28)
--- NOTE | 2021-03-28 17:50 | NUR ---
MS RN CLOSING NOTES PATIENT IS FOR DISCHARGE PER DOCTOR GARCIA'S ORDER. FOR DISCHARGE TO HOME. DISCHARGE INSTRUCTION AND EDUCATION PROVIDED TO PATIENT AND EXPLAINED MEDICATIONS AND PRESCRIPTIONS. PATIENT VERBALIZED UNDERSTANDING. DISCHARGE FORM AND BELONGINGS LIST FORM SIGNED BY PATIENT. ALL BELONGINGS ACCOUNTED FOR. NAME WRIST BAND AND IV LINE REMOVED. PATIENT WAS ACCOMPANIED TO THE LOBBY VIA WHEELCHAIR. ACCOMPANIED PATIENT TO THE [facility] WITH NIECE AND NEPHEW. PATIENT LEFT VIA PRIVATE CAR IN STABLE CONDITION. MD AND CHARGE NURSE ARE AWARE OF THE DISCHARGE.
== END 2021-03-28 17:50 | disposition home or self-care (01) | DRG 48 ==
LOC: ER 23:27 → TELE 03-23 02:24
PROVIDERS: ADMIT Internal Medicine; ATTEND Internal Medicine
PROC: 4A023N7 Measurement of Cardiac Sampling and Pressure, Left Heart, Percutaneous Approach (ICD-10-PCS; principal; 2021-03-28)
PROC: B211YZZ Fluoroscopy of Multiple Coronary Arteries using Other Contrast (ICD-10-PCS; 2021-03-28)
DX: G90.8 Other disorders of autonomic nervous system (principal); N17.0 Acute kidney failure with tubular necrosis; I21.4 Non-ST elevation (NSTEMI) myocardial infarction; D63.8 Anemia in other chronic diseases classified elsewhere; E11.22 Type 2 diabetes mellitus with diabetic chronic kidney disease; I95.9 Hypotension, unspecified; E11.42 Type 2 diabetes mellitus with diabetic polyneuropathy; D72.829 Elevated white blood cell count, unspecified; I12.9 Hypertensive chronic kidney disease with stage 1 through stage 4 chronic kidney disease, or unspecified chronic kidney disease; N18.9 Chronic kidney disease, unspecified; Z86.73 Personal history of transient ischemic attack (TIA), and cerebral infarction without residual deficits; Z20.822 Contact with and (suspected) exposure to COVID-19; E78.1 Pure hyperglyceridemia; E66.9 Obesity, unspecified
CPT/HCPCS: 36415; 70450-TC; 71045-TC; 76770-TC; 80048-TC; 80053-TC; 80061-TC; 80076-TC; 81001; 82306; 82570-TC; 82728-TC; 82962-TC; 83540-TC; 83735-TC; 83970; 84100-TC; 84155-TC; 84300-TC; 84439-TC; 84443-TC; 84484-TC; 85025-TC; 85610-TC; 85730-TC; 87081-TC; 93307-TC; 93452; C9803; G0378; G0500; J1644; J1815; J2250; J3010; J3490; J7030; Q9967

== ENCOUNTER 2022-06-26 20:33 | Inpatient (IN) | payer OTHER ==
[~2022-06-26] VITALS: Ht 154.9 cm; Wt 55.8 kg
[~2022-06-26 20:33] MED LIST: ATOR40TA PO; LISI40TA13 PO; METO25TA4 PO; NIFE60TA73 PO; NPH,100I SQ
[2022-06-26] MEDS ORDERED: FUROSEMIDE 40 MG/4 ML VIAL ONE (20:45)
--- NOTE | 2022-06-26 20:50 | NUR ---
BIB RA 88 FROM HOME C/O SOB X20 MINS. EKG TECH ALBUTERAL TX DONE. SATTING 80% ON R/A. UPON ARRIVAL SATTING 99% ON NRB 10LPM. PT A/OX3. CONNECTED PT TO POX AND MONITOR. SAFETY MEASURES IN PLACE.
--- NOTE | 2022-06-26 20:53 | NUR ---
COVID SWAB DONE AND SENT TO LAB
--- NOTE | 2022-06-26 20:54 | NUR ---
ENGINEERING OPERATOR AT PT'S BEDSIDE
--- NOTE | 2022-06-26 20:54 | NUR ---
UROGYNAECOLOGIST AT PT'S BEDSIDE
[2022-06-26] MEDS ORDERED: FUROSEMIDE 40 MG/4 ML VIAL IV ONE (21:00)
--- NOTE | 2022-06-26 21:00 | NUR ---
RT NOTE PT BROUGHT IN FOR SOB. PT BREATHING LABORED AND PLACED ON BIPAP 15/5 18 30%. PT LAITH WELL. Addendum: 06/26/22 at 7707 by CORINNE GALLAGHER RT Amended: Links added.
--- NOTE | 2022-06-26 21:02 | NUR ---
RT AT PT'S BEDSIDE FOR BIPAP
[2022-06-26 21:06] LABS: BASOPHILS # (AUTO) 0.1 K/uL (0.0-0.2); BASOPHILS % (AUTO) 1.1 % (0.0-2.0); EOSINOPHILS % (AUTO) 1.9 % (0.0-6.0); HEMATOCRIT 26 % (33-45); HEMOGLOBIN 8.5 g/dL (11.5-14.8); LYMPHOCYTES # (AUTO) 3.1 K/uL (0.8-4.8); MEAN CORPUSCULAR HGB CONC 32 g/dl (31.0-36.0); MEAN CORPUSCULAR VOLUME 90 fL (82-100); MONOCYTES # (AUTO) 0.4 K/uL (0.1-1.30); MONOCYTES % (AUTO) 3.3 % (2.0-12.0); NEUTROPHILS # (AUTO) 9.6 K/uL (1.8-8.9); NEUTROPHILS % (AUTO) 70.7 % (43.0-81.0); PLATELET COUNT (AUTO) 434 K/uL (150-450); RED BLOOD CELL COUNT(AUTO) 2.93 MIL/uL (4.0-5.2); WHITE BLOOD COUNT (AUTO) 13.6 K/uL (4.3-11.0)
--- NOTE | 2022-06-26 21:08 | NUR ---
BIPAP SETTINGS IPAP 15 EPAP 5 RATE 18 FIO2 30
--- NOTE | 2022-06-26 21:25 | NUR ---
RT AT PT'S BEDSIDE FOR EKG
--- NOTE | 2022-06-26 21:37 | NUR ---
RT AT PT'S BEDSIDE FOR ABG
[2022-06-26 21:48] LABS: ABG BASE EXCESS -9.4 mmol/L; ABG PH 7.312 (7.350-7.450); ABG PO2 117.3 mmHg (75.0-100.0); COHb 0.1 % (0.5-1.5); O2Hb 97.4 % (94.0-97.0); SITE, ABG Left Radial; VENT MODE, BG ST 15/5 30% 18
--- NOTE | 2022-06-26 22:00 | NUR ---
PT WAS TAKEN OFF OF THE BYPAP PER DR MALAGON'S ORDER AND PLACED ON O2 AT 5LPM . WILL CONT TO MONITOR
[2022-06-26 22:05] LABS: CALCIUM, SERUM 8.4 mg/dL (8.5-10.1); CARBON DIOXIDE 19 mmol/L (21-32); CHLORIDE 106 mmol/L (98-107); GLUCOSE 186 mg/dL (74-106); POTASSIUM 3.6 mmol/L (3.5-5.1); SODIUM SERUM 140 mmol/L (136-145); UREA NITROGEN, BLOOD 56 mg/dL (7-18)
--- NOTE | 2022-06-26 22:16 | NUR ---
CRITICAL LAB TROP 980; DR MANAS GREGORY AWARE
[2022-06-26 22:18] LABS: ALANINE AMINOTRANSFERASE 15 U/L (12-78); ALBUMIN 3.5 g/dL (3.4-5.0); ALKALINE PHOSPHATASE 84 U/L (46-116); ASPARTATE AMINOTRANSFERASE 19 U/L (15-37); BILIRUBIN,DIRECT 0.1 mg/dL (0.0-0.2); BILIRUBIN,TOTAL 0.3 mg/dL (0.2-1.0); TOTAL PROTEIN, SERUM 7.4 g/dL (6.4-8.2)
--- NOTE | 2022-06-26 22:26 | NUR ---
DR MALAGON ON THE PHONE WITH PHOSPHORIC ACID SUPERVISOR. Addendum: 06/26/[address] LEDESMA
[2022-06-26] MEDS ORDERED: ACETAMINOPHEN 325 MG TABLET PO PRN (23:00)
[2022-06-26] MEDS ORDERED: MAGNESIUM HYDROXIDE 30 ML UDC PO PRN (23:00)
[2022-06-26] MEDS ORDERED: ONDANSETRON HCL/PF 4 MG/2 ML VIAL IVP PRN (23:00)
[2022-06-26] MEDS ORDERED: Z GUARD REMEDY 4 OZ OINT TP PRN (23:00)
[2022-06-26] MEDS ORDERED: MAG HYDROX/AL HYDROX/SIMETH 30 ML UDC PO PRN (23:00)
[2022-06-26] MEDS ORDERED: ZOLPIDEM TARTRATE 5 MG TABLET PO PRN (23:00)
[2022-06-26] MEDS ORDERED: ASPIRIN EC 81 MG TABLET.DR PO ONE (23:00)
[2022-06-26] MEDS ORDERED: ASPIRIN 81 MG TAB.CHEW ONE (23:02)
[2022-06-26] MEDS ORDERED: DEXTROSE 50%-WATER 50 ML DISP.SYRIN IV PRN (23:30)
[2022-06-27] VITALS (25 sets, daily range): BP systolic 140–200; BP diastolic 57–109
--- NOTE | 2022-06-27 02:18 | NUR ---
REPORT GIVEN TO LEONORA MOSS RN FOR GABRIELLE
[2022-06-27] MEDS ORDERED: ACETAMINOPHEN 325 MG TABLET PO PRN (02:22)
--- NOTE | 2022-06-27 02:40 | NUR ---
PT TRANSFERRED TO [facility] 120 VIA ACLS PROTOCOL. VSS. ALL BELONGIGNS WITH PT. PT TOLERATED TRANSFER WELL.
--- NOTE | 2022-06-27 03:00 | NUR ---
MARKLOGIC DEVELOPERDAMAGE APPRAISER NOTE ADMITTED PT FROM ER, PT ARRIVED VIA STRETCHER ACCOMPANIED BY 2 ED PERSONNELS. PT BEING ADMITTED TO ROOM 118 WITH DX OF CHF EXACERBATION. PT A/O X4, ABLE TO VERBALIZE NEEDS. ON RA, O2 5L N/C SAT 100%. HAS SOB WITH EXERTION. AFEBRILE. DENIES PAIN/DISCOMFORT AT THIS TIME. IV ACCESS ON LEFT AC #20G, CLEAN, DRY AND PATENT. VSS. PT ABLE TO AMBULATE WITH ASSIST. SKIN ASSESSMENT DONE, SKIN INTACT WITH DRYNESS TO BLE. FALL AND SAFETY PRECAUTION OBSERVED: BED LOCKED AND IN LOWEST POSITION, CALL LIGHT WITHIN EASY REACH, SR UP X2. WILL CONTINUE TO MONITOR PT.
[2022-06-27] MEDS ORDERED: CEFTRIAXONE 1 G VIAL ONE (04:01)
[2022-06-27] MEDS: CEFTRIAXONE 1 G in IV D5W 50 ML IV SCH ×2 (04:05→21:15)
--- NOTE | 2022-06-27 06:50 | NUR ---
NURSERY SCHOOL TEACHER CLOSING NOTE PT LEFT SLEEPING IN BED, IN STABLE CONDITION. NO RESPIRATORY DISTRESS NOTED. SAFETY MEASURES IN PLACE: SR UP X2, CALL LIGHT WITHIN REACH, BED IN LOW POSITION. WILL ENDORSE TO AM SHIFT RN FOR GABRIELLE.
[2022-06-27 07:29] LABS: BASOPHILS % (AUTO) 0.2 % (0.0-2.0); HEMATOCRIT 25 % (33-45); HEMOGLOBIN 8.2 g/dL (11.5-14.8); LYMPHOCYTES # (AUTO) 0.8 K/uL (0.8-4.8); LYMPHOCYTES % (AUTO) 8.6 % (20.0-44.0); MEAN CORPUSCULAR HGB CONC 33 g/dl (31.0-36.0); MEAN CORPUSCULAR VOLUME 89 fL (82-100); MONOCYTES # (AUTO) 0.3 K/uL (0.1-1.30); MONOCYTES % (AUTO) 3.8 % (2.0-12.0); NEUTROPHILS # (AUTO) 7.7 K/uL (1.8-8.9); NEUTROPHILS % (AUTO) 87.4 % (43.0-81.0); PLATELET COUNT (AUTO) 352 K/uL (150-450); RED BLOOD CELL COUNT(AUTO) 2.79 MIL/uL (4.0-5.2); WHITE BLOOD COUNT (AUTO) 8.8 K/uL (4.3-11.0)
--- NOTE | 2022-06-27 07:30 | NUR ---
SOLE TRIMMER AM NOTES RECEIVED PATIENT IN BED, AAO X 3, ON 5L NASAL CANULA, SHORT OF BREATH WHEN TALKING, UPRIGHT POSITION, O2 SAT 100%, SINUS TACH HR 106 ON MONITOR, DENIES CHEST PAIN/DISCOMFORT, IV ACCESS ON LEFT AC G20 FLUSHES WELL, SITE CLEAR. BED REST FOR NOW, BUT USES BEDSIDE COMMODE, NO SKIN ISSUES, PLAN OF CARE DISCUSSED, VERBALIZED UNDERSTANDING. SAFETY MEASURES IN PLACE, HOB 30 DEG UP, SR UPX 2, BED LOW LOCKED, CALL LIGHT WITHIN REACH. WILL CONT TO MONITOR.
[2022-06-27 07:51] LABS: CALCIUM, SERUM 8.2 mg/dL (8.5-10.1); CREATININE 4.9 mg/dL (0.6-1.3); MAGNESIUM 2.4 mg/dL (1.8-2.4); PHOSPHORUS 6.3 mg/dL (2.5-4.9)
[2022-06-27] MEDS: BLOOD SUGAR DIAGNOSTIC 1 EACH STRIP IN SCH ×4 (08:02→22:18)
[2022-06-27] MEDS: ASPIRIN 81 MG TAB.CHEW PO SCH (08:07)
[2022-06-27] MEDS: NIFEDIPINE XL 60 MG TAB.ER.24 PO SCH (08:08)
[2022-06-27] MEDS: LISINOPRIL (20MG) 20 MG TABLET PO SCH (08:08)
[2022-06-27] MEDS: METOPROLOL SUCCINATE 25 MG TAB.SR.24H PO SCH (08:08)
--- NOTE | 2022-06-27 08:35 | NUR ---
STUFFED CASING TIER NOTES DR. CHAMBERS AND DR. COOMBS NOTIFIED OF BP 200/102 HR 106
--- NOTE | 2022-06-27 08:50 | NUR ---
RN NOTES RAPID RESPONSE CALLED. BP 200/110 SHORTNESS OF BREATH
[2022-06-27] MEDS ORDERED: FUROSEMIDE 40 MG/4 ML VIAL IV ONE (09:00)
--- NOTE | 2022-06-27 09:08 | NUR ---
RN NOTES PATIENT TRANSFERRED TO ICU 263. BEDSIDE REPORT GIVEN TO MARTY HOLLAND FOR GABRIELLE
--- NOTE | 2022-06-27 09:10 | NUR ---
RN NOTES 0850- RAPID RESPONSE CALLED 0852 - TEAM ARRIVED. - JLUIS RESP THERAPIST, DENISSE ISA CHARGE NURSE, LEONORA PRIMARY RN, ARPI NURSING ANKLE PATCH MOLDER. 0855 - dR. COOMBS NOTIFIED.\ 0857 - DR. ADKINS AT BEDSIDE. ORDERED FOR LASIX 40 MG IV X 1, BREATHING TREATMENT THEN ABG. TRANSFER TO ICU. RAPID RESPONSE ENDED.
[2022-06-27] MEDS: methylPREDNISolone SOD SUCC 125 MG/2ML VIAL IV SCH (10:08)
[2022-06-27] MEDS: HEPARIN SODIUM, PORCINE 5000 UNITS/1 ML VIAL SQ SCH ×2 (10:09→17:37)
[2022-06-27 10:22] LABS: ABG BASE EXCESS -8.1 mmol/L; ABG OXYGEN SATURATION 92.4 % (92.0-98.5); ABG PCO2 31.2 mmHg (35.0-45.0); ABG PH 7.345 (7.350-7.450); ABG PO2 63.8 mmHg (75.0-100.0); AaDO2 156.7 mmHg; COHb 0.2 % (0.5-1.5); O2Hb 92.2 % (94.0-97.0); SITE, ABG Left Radial; VENT MODE, BG 4 LPM NC
[2022-06-27] MEDS: ALBUTEROL HALF STRENGTH 1.25 MG/3 ML VIAL.NEB NEB SCH ×5 (10:55→23:27)
[2022-06-27] MEDS: IPRATROPIUM NEB FS 0.5 MG/2.5 ML AMPUL.NEB NEB SCH ×4 (10:55→23:27)
[2022-06-27] MEDS: INSULIN REGULAR, HUMAN 100 UNIT/ML 3 ML VIAL SQ PRN ×2 (13:06→17:38)
[2022-06-27] MEDS: NITROGLYCERIN PACKET 1 GM PACKET TOP SCH ×3 (13:12→23:46)
[2022-06-27] MEDS ORDERED: hydrALAZINE HCL IV 20 MG VIAL IV PRN (14:00)
[2022-06-27] MEDS: ATORVASTATIN 40 MG TABLET PO SCH (17:41)
--- NOTE | 2022-06-27 18:08 | NUR ---
Pt transferred to ICU for Acute hypoxemic respiratory failure secondary to fluid overload. Pt receiving ALB breathing TX upon arrival to ICU LAsix given and Payne inserted upon arrival as well Elevated BP noted. Dr Turpin aware. Anti Hypertensive given as prescribed. Hypertensive urgency Cont Diabetes Management per Insulin Sliding Scale Cont to monitot closely. Pt AOx4 at this time. O2 sat 100 on 4L NC. No SOB noted. Diures well with Lasix. Eating dinner at this time
[2022-06-27 19:12] LABS: BILIRUBIN,URINE NEGATIVE (NEGATIVE); COLOR,URINE YELLOW (YELLOW); LEUKOCYTE ESTERASE ,URINE NEGATIVE (NEGATIVE); NITRITE, URINE NEGATIVE (NEGATIVE); PROTEIN,URINE 3+ mg/dl (NEGATIVE); UGLUCOSE TRACE mg/dL (NEGATIVE); UROBILINOGEN,URINE 0.2 EU/dL (0.2)
[2022-06-27 19:22] LABS: CREATININE, URINE 81.9 MG/DL (30.0-125.0)
--- NOTE | 2022-06-27 19:40 | NUR ---
RN NOTES, RECEIVED PATIENT IN BED, AWAKE A/O X4 ABLE TO VERBALIZE NEEDS AND CONCERNS, AT 3LPM VIA NC, NO SOB/ACUTE RESPIRATORY DISTRESS NOTED AT THIS TIME, NSR IN TELE MONITOR, LEFT AC IN PLACE PATENT AND INTACT, NO FLUIDS RUNNING, PT CHF, LASIX RECEIVED EARLIER, PT REYES ASSESSING PT AT BEDSIDE AT THIS TIME, NO NEW ORDERS FROM DR CHAMBERS RECEIVED, HE WILL REVIEW PT'S MEDICATION , BLOOD PRESSURE 150S AT THIS TIME, OTHERWISE, ACUTE DISTRESS, WILL CONTINUE TO MONITOR CLOSELY.
[2022-06-27 20:46] LABS: RBC,URINE 51-80 /HPF (0-2); WBC,URINE 0-2 /HPF (0-3)
[2022-06-27 20:47] LABS: BACTERIA,URINE Few /HPF (None Seen); SQUAMOUS EPITHELIAL CELL,UR Moderate /HPF (None Seen)
[2022-06-27 20:48] LABS: COARSE GRANULAR CASTS,URINE Few /LPF (None Seen)
[2022-06-28] VITALS (27 sets, daily range): BP systolic 134–169; BP diastolic 61–92
--- NOTE | 2022-06-28 02:32 | NUR ---
REPORTED VALUE FOR CRITICAL TROPONIN FROM LAB, AT THIS TIME 3,473. INFORMED ALIE HEALY SANIPRACTIC PHYSICIAN AND INFORMED HIM THAT PT IS IN HEPARIN 5000 SQ BID, AND PER BOYD NO NEW ORDERS.
[2022-06-28] MEDS: IPRATROPIUM NEB FS 0.5 MG/2.5 ML AMPUL.NEB NEB SCH ×6 (03:51→23:17)
[2022-06-28] MEDS: ALBUTEROL HALF STRENGTH 1.25 MG/3 ML VIAL.NEB NEB SCH ×6 (03:51→23:17)
[2022-06-28 04:47] LABS: BASOPHILS # (AUTO) 0.1 K/uL (0.0-0.2); BASOPHILS % (AUTO) 0.7 % (0.0-2.0); EOSINOPHILS % (AUTO) 2.6 % (0.0-6.0); HEMATOCRIT 24 % (33-45); HEMOGLOBIN 7.8 g/dL (11.5-14.8); LYMPHOCYTES # (AUTO) 0.9 K/uL (0.8-4.8); LYMPHOCYTES % (AUTO) 9.6 % (20.0-44.0); MEAN CORPUSCULAR HGB CONC 33 g/dl (31.0-36.0); MEAN CORPUSCULAR VOLUME 89 fL (82-100); MONOCYTES # (AUTO) 0.5 K/uL (0.1-1.30); MONOCYTES % (AUTO) 5.4 % (2.0-12.0); NEUTROPHILS # (AUTO) 7.3 K/uL (1.8-8.9); NEUTROPHILS % (AUTO) 81.7 % (43.0-81.0); PLATELET COUNT (AUTO) 350 K/uL (150-450); RED BLOOD CELL COUNT(AUTO) 2.66 MIL/uL (4.0-5.2); WHITE BLOOD COUNT (AUTO) 8.9 K/uL (4.3-11.0)
[2022-06-28 05:14] LABS: CALCIUM, SERUM 8.1 mg/dL (8.5-10.1); CREATININE 4.7 mg/dL (0.6-1.3); MAGNESIUM 2.1 mg/dL (1.8-2.4); PHOSPHORUS 5.9 mg/dL (2.5-4.9); POTASSIUM 4.2 mmol/L (3.5-5.1)
[2022-06-28] MEDS: NITROGLYCERIN PACKET 1 GM PACKET TOP SCH ×3 (05:22→17:42)
--- NOTE | 2022-06-28 06:38 | NUR ---
END OF SHIFT, PATIENT ASLEEP AT THIS TIME, AROUSES TO VERBAL STIMULI, CONT AT 3LPM VIA NC WITH OPTIMAL O2 SAT LEVEL, NO SOB/ACUTE RESPIRATORY DISTRESS, NSR-ST IN MONITOR, IV SITE IN LEFT AC PATENT AND INTACT, NO IV FLUIDS RUNNING , MEDICATION DUE ADMINISTERED ORDERED, HYDRALAZINE IVP GIVEN ONCE DURING THE NIGHT FOR BLOOD PRESSURE, ON NITRO PATCH 2X ADMINISTERED DURING THIS SHIFT, AND HELPED TO CONTROL BLOOD PRESSURE, TROPONIN WENT UP TO 3,743 PREPARATION PLANT REPAIRER, REPORTED TO ALIE HEALY DNP, AND PER HIM, NO NEW ORDERS, KEPT PT DRY AND CLEAN, WILL ENDORSE CONTINUITY OF CARE TO ONCOMING NURSE.
[2022-06-28] MEDS: BLOOD SUGAR DIAGNOSTIC 1 EACH STRIP IN SCH ×4 (08:36→22:27)
[2022-06-28] MEDS: methylPREDNISolone SOD SUCC 125 MG/2ML VIAL IV SCH (08:41)
[2022-06-28] MEDS: FUROSEMIDE 40 MG/4 ML VIAL IV SCH ×2 (08:41→17:17)
[2022-06-28] MEDS: LISINOPRIL (20MG) 20 MG TABLET PO SCH (08:42)
[2022-06-28] MEDS: METOPROLOL SUCCINATE 25 MG TAB.SR.24H PO SCH (08:42)
[2022-06-28] MEDS: ASPIRIN 81 MG TAB.CHEW PO SCH (08:43)
[2022-06-28] MEDS: NIFEDIPINE XL 60 MG TAB.ER.24 PO SCH (08:43)
[2022-06-28] MEDS: HEPARIN SODIUM, PORCINE 5000 UNITS/1 ML VIAL SQ SCH ×2 (09:58→17:22)
[2022-06-28] MEDS ORDERED: hydrALAZINE HCL IV 20 MG VIAL IV PRN (10:10)
--- NOTE | 2022-06-28 10:15 | NUR ---
FARMWORKER GRAIN-CORIN SEEN/VISITED PT. NOW.
[2022-06-28] MEDS: INSULIN REGULAR, HUMAN 100 UNIT/ML 3 ML VIAL SQ PRN ×3 (12:47→22:28)
--- NOTE | 2022-06-28 15:10 | NUR ---
TRANSFERRED PATIENT PER ORDER/PROTOCOL TO TELE UNIT- 323-BED 1, STABLE , NO SSX OF ACUTE DISTRESS NOTED, BEDSIDE REPORT GIVEN TO RN-NORMA, CHARGE NURSE-JARVIS SHANNON.
--- NOTE | 2022-06-28 15:15 | NUR ---
PATIENT RECEIVED ON FLOOR. ON ROOM AIR. A&OX4, ABLE TO MAKE NEEDS KNOWN. DENIES PAIN. VITALS BP 142/65, HR 98, RESP 20, O2 97% @RA. PATIENT ORIENTED TO ROOM AND CALL TOBIAS BY CHAIN LINK FENCE INSTALLERBlu SOL NOTED. CURRENTLY IN SEMI COATES POSITION. NO CONCERNS NOTED. NORMA Montanez RN, BSN
[2022-06-28] MEDS: ATORVASTATIN 40 MG TABLET PO SCH (17:17)
--- NOTE | 2022-06-28 19:30 | NUR ---
MS RN OPENING NOTE RECEIVED PT AWAKE IN BED. A/OX4 AND ABLE TO MAKE NEEDS KNOWN. PT SON O2 VIA NC @ 2LPM, TOLERATING WELL. NO SOB OR S/S OF RESPIRATORY DISTRESS. BREATHING EVEN AND UNLABORED. IV ACCESS LAC 20G SL, INTACT AND PATENT. WITH SOL CATH DRAINING URINE BY GRAVITY. SAFETY PRECAUTIONS IN PLACE. BED IN LOWEST LOCKED POSITION, HOB ELEVATED, SIDE RAILS UP X2, AND CALL LIGHT AND TABLE WITHIN REACH. ALL NEEDS MET AT THIS TIME.
[2022-06-28] MEDS: CEFTRIAXONE 1 G in IV D5W 50 ML IV SCH (22:27)
[2022-06-29] MEDS: NITROGLYCERIN PACKET 1 GM PACKET TOP SCH ×4 (00:38→17:41)
[2022-06-29 04:00] VITALS: BP 149/70
[2022-06-29] MEDS: ALBUTEROL HALF STRENGTH 1.25 MG/3 ML VIAL.NEB NEB SCH ×6 (04:20→23:23)
[2022-06-29] MEDS: IPRATROPIUM NEB FS 0.5 MG/2.5 ML AMPUL.NEB NEB SCH ×6 (04:20→23:23)
[2022-06-29] MEDS: BLOOD SUGAR DIAGNOSTIC 1 EACH STRIP IN SCH ×4 (06:32→22:22)
[2022-06-29] MEDS: INSULIN REGULAR, HUMAN 100 UNIT/ML 3 ML VIAL SQ PRN ×4 (06:34→22:24)
--- NOTE | 2022-06-29 06:45 | NUR ---
POLICE RADIO DISPATCHER CLOSING NOTE PT AWAKE IN BED. A/OX4 AND ABLE TO MAKE NEEDS KNOWN. PT IS ON O2 VIA NC @ 2LPM, TOLERATING WELL. NO SOB OR S/S OF RESPIRATORY DISTRESS. BREATHING EVEN AND UNLABORED. ON EXTERNAL PATTERN STAMPER READING SR 87 BPM. IV ACCESS LAC 20G SL, INTACT AND PATENT. WITH SOL CATH DRAINING URINE BY GRAVITY, DRAINED 700ML THIS SHIFT. ALL DUE MEDS GIVEN ORDERED. KEPT CLEAN AND DRY. SAFETY PRECAUTIONS IN PLACE AT ALL TIMES. BED IN LOWEST LOCKED POSITION, HOB ELEVATED, SIDE RAILS UP X2, AND CALL LIGHT AND TABLE WITHIN REACH. ALL NEEDS MET AT THIS TIME AND WILL ENDORSE TO ONCOMING NURSE FOR GABRIELLE.
[2022-06-29 07:23] LABS: CALCIUM, SERUM 8.1 mg/dL (8.5-10.1); CREATININE 5.1 mg/dL (0.6-1.3); MAGNESIUM 2.1 mg/dL (1.8-2.4); PHOSPHORUS 5.5 mg/dL (2.5-4.9); POTASSIUM 4.1 mmol/L (3.5-5.1)
[2022-06-29 07:25] LABS: BASOPHILS % (AUTO) 0.1 % (0.0-2.0); HEMATOCRIT 24 % (33-45); HEMOGLOBIN 7.9 g/dL (11.5-14.8); LYMPHOCYTES # (AUTO) 0.7 K/uL (0.8-4.8); LYMPHOCYTES % (AUTO) 10.6 % (20.0-44.0); MEAN CORPUSCULAR HGB CONC 33 g/dl (31.0-36.0); MEAN CORPUSCULAR VOLUME 89 fL (82-100); MONOCYTES # (AUTO) 0.4 K/uL (0.1-1.30); MONOCYTES % (AUTO) 6.8 % (2.0-12.0); NEUTROPHILS # (AUTO) 5.4 K/uL (1.8-8.9); NEUTROPHILS % (AUTO) 82.5 % (43.0-81.0); PLATELET COUNT (AUTO) 382 K/uL (150-450); RED BLOOD CELL COUNT(AUTO) 2.66 MIL/uL (4.0-5.2); WHITE BLOOD COUNT (AUTO) 6.5 K/uL (4.3-11.0)
--- NOTE | 2022-06-29 07:29 | NUR ---
VP CONSTRUCTION OPENING NOTES PT RECEIVED IN BED, AWAKE. A/O X 4, ABLE TO VERBALIZE NEEDS. NO C/O PAIN/DISCOMFORT AT THIS TIME. IV ACCESS AT LAC #20G SL, C/D/I. WITH O2 VIA NC AT 4LPM, TOLERATED WELL, NO SIGNS OF ACUTE RESPIRATORY DISTRESS. WITH RN ACUTE DIALYSIS ON SR, HR 87. WITH SOL VIA GRAVITY DRAINING YELLOW URINE. SAFETY MEASURES IN PLACE: BED LOCKED AND IN LOWEST POSITION, CALL LIGHT AND TRAY TABLE WITHIN REACH, SIDE RAILS X 2. WILL CONTINUE TO MONITOR.
[2022-06-29 08:36] VITALS: BP 146/72
[2022-06-29] MEDS: LISINOPRIL (20MG) 20 MG TABLET PO SCH (09:00)
[2022-06-29] MEDS: ASPIRIN 81 MG TAB.CHEW PO SCH (09:29)
[2022-06-29] MEDS: FUROSEMIDE 40 MG/4 ML VIAL IV SCH ×2 (09:30→17:44)
[2022-06-29] MEDS: METOPROLOL SUCCINATE 25 MG TAB.SR.24H PO SCH (09:30)
[2022-06-29] MEDS: HEPARIN SODIUM, PORCINE 5000 UNITS/1 ML VIAL SQ SCH ×2 (09:31→17:44)
[2022-06-29] MEDS: NIFEDIPINE XL 60 MG TAB.ER.24 PO SCH (09:35)
--- NOTE | 2022-06-29 11:59 | NUR ---
RN NOTES TITRATED SUPPLEMENTAL 02 TO 1LPM VIA N/C, PT TOLERATING WELL WITH SP02 OF 97-98% NOTED. PT WITH NO C/O OF SOB VOICED AT THIS TIME.
[2022-06-29 12:00] VITALS: BP 164/95
[2022-06-29] MEDS: CALCIUM ACETATE 667 MG CAP/TAB PO SCH ×2 (13:37→17:42)
[2022-06-29 15:58] VITALS: BP 132/71
[2022-06-29] MEDS: ATORVASTATIN 40 MG TABLET PO SCH (17:37)
--- NOTE | 2022-06-29 18:07 | NUR ---
RN NOTES PATIENT PLACED ON ROOM AIR, TOLERATING WELL AT THIS TIME WITH NO C/O SOB VOICED. SP02 NOTED AT 97-98%. WILL CONTINUE TO MONITOR PT.
--- NOTE | 2022-06-29 18:36 | NUR ---
BAND ATTACHER CLOSING NOTES PT IN BED, WATCHING TV. A/O X 4, ABLE TO VERBALIZE NEEDS. DID NOT C/O PAIN/DISCOMFORT WITHIN THE SHIFT. IV ACCESS AT LAC #20G SL, C/D/I. ON ROOM AIR, TOLERATED WELL, NO SIGNS OF ACUTE RESPIRATORY DISTRESS. WITH TETRYL WRINGER OPERATOR ON SR, HR 98. WITH SOL VIA GRAVITY DRAINING YELLOW URINE. NEEDS ATTENDED. SAFETY MEASURES IN PLACE: BED LOCKED AND IN LOWEST POSITION, CALL LIGHT AND TRAY TABLE WITHIN REACH, SIDE RAILS X 2. WILL ENDORSE GABRIELLE TO TOOL AND DIE TECHNICIAN.
--- NOTE | 2022-06-29 19:30 | NUR ---
COPYHOLDER OPENING NOTE RECEIVED PATIENT FROM AM NURSE; PATIENT IS ALERT AND ORIENTED X 4, ABLE TO CONVERSE AND MAKE NEEDS KNOWN; CURRENTLY ON ROOM AIR TOLERATING WELL AND NO RESPIRATORY DISTRESS NOTED; WITH IV ACCESS ON LAC G20 SALINE LOCK, INTACT; HOOKED TO SOL CATHETER DRAINING TO YELLOW COLORED URINE APPROXIMATELY 950ML; VITAL SIGNS TAKEN; ENCOURAGED VERBALIZATION OF NEEDS; SAFETY PRECAUTIONS IMPLEMENTED, BED IN LOW POSITION, LOCKED, SIDE RAILS UP X 3, CALL LIGHT WITHIN REACH; WILL CONTINUE TO MONITOR THROUGHOUT SHIFT
[2022-06-29 20:00] VITALS: BP 149/64
[2022-06-29] MEDS: CEFTRIAXONE 1 G in IV D5W 50 ML IV SCH (21:43)
[2022-06-30] VITALS: BP 146/61
[2022-06-30] MEDS: NITROGLYCERIN PACKET 1 GM PACKET TOP SCH ×4 (00:12→17:34)
[2022-06-30] MEDS: IPRATROPIUM NEB FS 0.5 MG/2.5 ML AMPUL.NEB NEB SCH ×6 (03:00→23:47)
[2022-06-30] MEDS: ALBUTEROL HALF STRENGTH 1.25 MG/3 ML VIAL.NEB NEB SCH ×6 (03:01→23:47)
[2022-06-30 05:03] VITALS: BP 136/65
[2022-06-30] MEDS: INSULIN REGULAR, HUMAN 100 UNIT/ML 3 ML VIAL SQ PRN ×4 (06:40→21:46)
[2022-06-30] MEDS: BLOOD SUGAR DIAGNOSTIC 1 EACH STRIP IN SCH ×4 (06:49→21:43)
--- NOTE | 2022-06-30 07:04 | NUR ---
SPECIALIST EMPLOYEE LABOR RELATIONS CLOSING NOTE PATIENT IS ALERT AND ORIENTED X 4, ABLE TO CONVERSE AND MAKE NEEDS KNOWN; CURRENTLY ON ROOM AIR TOLERATING WELL AND NO RESPIRATORY DISTRESS NOTED; WITH IV ACCESS ON LAC G20 SALINE LOCK, INTACT AND PATENT; HOOKED TO SOL CATHETER DRAINING TO LIGHT YELLOW COLORED URINE; ADMINISTERED MEDICATIONS PRESCRIBED; PATIENT'S NEEDS ATTENDED; MONITORED ACCORDINGLY; SAFETY PRECAUTIONS IMPLEMENTED, BED IN LOW POSITION, LOCKED, SIDE RAILS UP X 3, CALL LIGHT WITHIN REACH; WILL ENDORSE TO AM NURSE FOR GABRIELLE.
--- NOTE | 2022-06-30 07:55 | NUR ---
STOCKBROKING DEALER OPENING NOTE RECEIVED PATIENT IN BED AWAKE WITH BLURRY VISION ; A/O X 4, VERBALLY RESPONSIVE AND ABLE TO ; CURRENTLY ON ROOM AIR TOLERATING WELL WITH NO SOB OR DISTRESS NOTED; IV ACCESS ON LAC G20 SALINE LOCK, INTACT; HOOKED TO SOL CATHETER DRAINING TO YELLOW COLORED URINE DRAINI G WELL ; ENCOURAGED VERBALIZATION OF NEEDS; SAFETY PRECAUTIONS IMPLEMENTED, BED IN LOW POSITION, LOCKED, SIDE RAILS UP X 3, CALL LIGHT WITHIN REACH; WILL CONTINUE TO MONITOR THROUGHOUT SHIFT
[2022-06-30] MEDS: CALCIUM ACETATE 667 MG CAP/TAB PO SCH ×3 (08:37→17:33)
[2022-06-30] MEDS: LISINOPRIL (20MG) 20 MG TABLET PO SCH (09:00)
[2022-06-30] MEDS ORDERED: methylPREDNISolone SOD SUCC 125 MG/2ML VIAL IV SCH (09:00)
[2022-06-30] MEDS: FUROSEMIDE 40 MG/4 ML VIAL IV SCH ×2 (09:18→17:33)
[2022-06-30] MEDS: ASPIRIN 81 MG TAB.CHEW PO SCH (09:19)
[2022-06-30] MEDS: NIFEDIPINE XL 60 MG TAB.ER.24 PO SCH (09:20)
[2022-06-30] MEDS: METOPROLOL SUCCINATE 25 MG TAB.SR.24H PO SCH (09:21)
[2022-06-30] MEDS: HEPARIN SODIUM, PORCINE 5000 UNITS/1 ML VIAL SQ SCH ×2 (09:24→17:36)
[2022-06-30] MEDS ORDERED: NIFE-34 PO (11:05)
[2022-06-30] MEDS ORDERED: ASPI-1169 PO (11:05)
[2022-06-30] MEDS ORDERED: CALC667C6 PO (11:05)
[2022-06-30] MEDS ORDERED: BUME2TAB7 PO (11:05)
[2022-06-30 11:11] LABS: BASOPHILS % (AUTO) 0.1 % (0.0-2.0); EOSINOPHILS % (AUTO) 0.6 % (0.0-6.0); HEMATOCRIT 24 % (33-45); HEMOGLOBIN 7.9 g/dL (11.5-14.8); LYMPHOCYTES % (AUTO) 12.4 % (20.0-44.0); MEAN CORPUSCULAR HGB CONC 33 g/dl (31.0-36.0); MEAN CORPUSCULAR VOLUME 89 fL (82-100); MONOCYTES # (AUTO) 0.4 K/uL (0.1-1.30); MONOCYTES % (AUTO) 5.4 % (2.0-12.0); NEUTROPHILS # (AUTO) 6.7 K/uL (1.8-8.9); NEUTROPHILS % (AUTO) 81.5 % (43.0-81.0); PLATELET COUNT (AUTO) 415 K/uL (150-450); RED BLOOD CELL COUNT(AUTO) 2.66 MIL/uL (4.0-5.2); WHITE BLOOD COUNT (AUTO) 8.3 K/uL (4.3-11.0)
[2022-06-30 11:25] LABS: CALCIUM, SERUM 7.7 mg/dL (8.5-10.1); CREATININE 5.3 mg/dL (0.6-1.3)
[2022-06-30] MEDS: ATORVASTATIN 40 MG TABLET PO SCH (17:34)
--- NOTE | 2022-06-30 19:30 | NUR ---
PRACTICE OFFICE ASSOCIATE OPENING NOTE RECEIVED PATIENT FROM AM NURSE; PATIENT IS ALERT AND ORIENTED X 4, ABLE TO MAKE NEEDS KNOWN; ON ROOM AIR TOLERATING WELL AND NO RESPIRATORY DISTRESS NOTED; HOOKED TO REPORTS DEVELOPER; WITH IV ACCESS ON LAC G20 SALINE LOCK, INTACT; SOL CATHETER IN PLACE DRAINING TO YELLOW COLORED URINE; VITAL SIGNS TAKEN; ENCOURAGED VERBALIZATION OF NEEDS; SAFETY PRECAUTIONS IMPLEMENTED, BED IN LOW POSITION, LOCKED, SIDE RAILS UP X 3, CALL LIGHT WITHIN REACH; WILL CONTINUE TO MONITOR THROUGHOUT SHIFT
--- NOTE | 2022-06-30 19:33 | NUR ---
MAINTENANCE TEAM MEMBER CLOSING NOTE PATIENT IN BED AWAKE WITH BLURRY VISION ; A/O X 4, VERBALLY RESPONSIVE AND ABLE TO MAKE NEEDS KNOWN ; CURRENTLY ON ROOM AIR TOLERATING WELL WITH NO SOB OR DISTRESS NOTED; IV ACCESS ON LAC G20 SALINE LOCK, INTACT; SOL CATHETER DRAINING TO YELLOW COLORED URINE DRAINING WELL ; ALL DUE MEDS ORDERED GIVEN ENCOURAGED VERBALIZATION OF NEEDS; SAFETY PRECAUTIONS IMPLEMENTED, BED IN LOW POSITION, LOCKED, SIDE RAILS UP X 3, CALL LIGHT WITHIN REACH; ABLE TO AMBULATE WITH FWW AROUND 300 FEET , ENDORSED TO NEXT SHIFT
[2022-06-30 20:26] VITALS: BP 153/75
[2022-06-30] MEDS: CEFTRIAXONE 1 G in IV D5W 50 ML IV SCH (21:31)
--- NOTE | 2022-06-30 22:15 | NUR ---
ACCUCHECK WAS DONE, PATIENT'S BLOOD SUGAR WAS 272. 6 UNITS OF INSULIN WAS GIVEN SQ PER SLIDING SCALE. PATIENT TOLERATED WELL
[2022-07-01] MEDS: NITROGLYCERIN PACKET 1 GM PACKET TOP SCH ×4 (00:08→17:11)
[2022-07-01] MEDS: ALBUTEROL HALF STRENGTH 1.25 MG/3 ML VIAL.NEB NEB SCH ×6 (03:47→23:27)
[2022-07-01] MEDS: IPRATROPIUM NEB FS 0.5 MG/2.5 ML AMPUL.NEB NEB SCH ×6 (03:47→23:27)
[2022-07-01 04:00] VITALS: BP 111/53
[2022-07-01] MEDS: INSULIN REGULAR, HUMAN 100 UNIT/ML 3 ML VIAL SQ PRN ×4 (06:28→21:44)
[2022-07-01 06:31] LABS: BASOPHILS % (AUTO) 0.2 % (0.0-2.0); EOSINOPHILS % (AUTO) 0.1 % (0.0-6.0); HEMATOCRIT 23 % (33-45); HEMOGLOBIN 7.5 g/dL (11.5-14.8); LYMPHOCYTES # (AUTO) 1.7 K/uL (0.8-4.8); MEAN CORPUSCULAR HGB CONC 33 g/dl (31.0-36.0); MEAN CORPUSCULAR VOLUME 89 fL (82-100); MONOCYTES # (AUTO) 0.6 K/uL (0.1-1.30); MONOCYTES % (AUTO) 6.4 % (2.0-12.0); NEUTROPHILS # (AUTO) 6.6 K/uL (1.8-8.9); NEUTROPHILS % (AUTO) 74.3 % (43.0-81.0); PLATELET COUNT (AUTO) 394 K/uL (150-450); RED BLOOD CELL COUNT(AUTO) 2.54 MIL/uL (4.0-5.2); WHITE BLOOD COUNT (AUTO) 8.8 K/uL (4.3-11.0)
--- NOTE | 2022-07-01 06:40 | NUR ---
VASCULAR NURSE CLOSING NOTE PATIENT IS ALERT AND ORIENTED X 4, ABLE TO CONVERSE AND MAKE NEEDS KNOWN; ON ROOM AIR TOLERATING WELL AND NO RESPIRATORY DISTRESS NOTED; HOOKED TO WIRELESS ENGINEER CURRENTLY READING SINUS RHYTHM 80S BPM; WITH IV ACCESS ON LAC G20 SALINE LOCK, INTACT AND PATENT; SOL CATHETER IN PLACE DRAINING TO LIGHT YELLOW COLORED URINE; ADMINISTERED MEDICATIONS PRESCRIBED; PATIENT'S NEEDS ATTENDED; MONITORED PATIENT ACCORDINGLY; SAFETY PRECAUTIONS IMPLEMENTED, BED IN LOW POSITION, LOCKED, SIDE RAILS UP X 3, CALL LIGHT WITHIN REACH; WILL ENDORSE TO AM NURSE FOR GABRIELLE.
[2022-07-01 07:03] LABS: CALCIUM, SERUM 7.9 mg/dL (8.5-10.1); CREATININE 5.5 mg/dL (0.6-1.3); MAGNESIUM 2.1 mg/dL (1.8-2.4); PHOSPHORUS 6.1 mg/dL (2.5-4.9)
--- NOTE | 2022-07-01 07:46 | NUR ---
SWITCHBOARD INSTALLER OPENING NOTE RECEIVED PATIENT IN BED AWAKE WITH BLURRY VISION ; A/O X 4, VERBALLY RESPONSIVE AND ABLE TO MAKE NEEDS KNOWN ; ON ROOM AIR TOLERATING WELL WITH NO SOB OR DISTRESS NOTED; NO C/O OF PAIN AND DISCOMFORT , IV ACCESS ON LAC G20 SALINE LOCK, INTACT; ON SOL CATHETER DRAINING TO YELLOW COLORED URINE DRAINING WELL ; ENCOURAGED VERBALIZATION OF NEEDS; SAFETY PRECAUTIONS IMPLEMENTED, BED IN LOW POSITION, LOCKED, SIDE RAILS UP X 3, CALL LIGHT WITHIN REACH; WILL CONTINUE TO MONITOR THROUGHOUT SHIFT
[2022-07-01] MEDS: BLOOD SUGAR DIAGNOSTIC 1 EACH STRIP IN SCH ×4 (07:53→21:50)
[2022-07-01 08:00] VITALS: BP 135/58
[2022-07-01] MEDS: LISINOPRIL (20MG) 20 MG TABLET PO SCH (08:52)
[2022-07-01] MEDS: FUROSEMIDE 40 MG/4 ML VIAL IV SCH ×2 (09:01→17:03)
[2022-07-01] MEDS: ASPIRIN 81 MG TAB.CHEW PO SCH (09:01)
[2022-07-01] MEDS: NIFEDIPINE XL 60 MG TAB.ER.24 PO SCH (09:01)
[2022-07-01] MEDS: HEPARIN SODIUM, PORCINE 5000 UNITS/1 ML VIAL SQ SCH ×2 (09:02→17:04)
[2022-07-01] MEDS: METOPROLOL SUCCINATE 25 MG TAB.SR.24H PO SCH (09:13)
[2022-07-01] MEDS ORDERED: BUME0.5T6 PO (11:05)
[2022-07-01 12:00] VITALS: BP 145/66
[2022-07-01 16:00] VITALS: BP 158/70
[2022-07-01] MEDS: ATORVASTATIN 40 MG TABLET PO SCH (17:11)
--- NOTE | 2022-07-01 19:11 | NUR ---
TRAFFIC ATTENDANT CLOSING NOTE RECEIVED PATIENT IN BED AWAKE WITH BLURRY VISION ; A/O X 4, VERBALLY RESPONSIVE AND ABLE TO MAKE NEEDS KNOWN ; ON ROOM AIR TOLERATING WELL WITH NO SOB OR DISTRESS NOTED; NO C/O OF PAIN AND DISCOMFORT , IV ACCESS ON LAC G20 SALINE LOCK, INTACT; ON SOL CATHETER DRAINING TO YELLOW COLORED URINE DRAINING WELL ; ENCOURAGED VERBALIZATION OF NEEDS; ALL DUE MEDS GIVEN ORDERED , SAFETY PRECAUTIONS IMPLEMENTED, BED IN LOW POSITION, LOCKED, SIDE RAILS UP X 3, CALL LIGHT WITHIN REACH; WILL ENDORSED TO NEXT SHIFT
--- NOTE | 2022-07-01 19:54 | NUR ---
INSPECTOR RADAR AND ELECTRONICS OPENING NOTE; RECEIVED PATIENT IN BED AAOX4 ABLE TO MAKE NEEDS KNOWN,ON ROOM AIR TOLERATING WELL SATTING 97%,NO SIGN SOB/DISTRESS NOTED,NO COMPLAIN OF PAIN/DISCOMFORT AT THIS TIME,IV ACCESS ON LAC G20 SL,SOL CATHETER DRAINING TO YELLOW COLORED URINE,NO ODOR NOTED,SAFETY PRECAUTIONS IMPLEMENTED, BED IN LOW POSITION, LOCKED, SIDE RAILS UP X 3, CALL LIGHT WITHIN REACH; WILL CONTINUE TO MONITOR.
[2022-07-01] MEDS: CEFTRIAXONE 1 G in IV D5W 50 ML IV SCH (21:15)
[2022-07-02] MEDS: NITROGLYCERIN PACKET 1 GM PACKET TOP SCH ×5 (01:18→23:09)
[2022-07-02] MEDS: IPRATROPIUM NEB FS 0.5 MG/2.5 ML AMPUL.NEB NEB SCH ×6 (03:44→23:41)
[2022-07-02] MEDS: ALBUTEROL HALF STRENGTH 1.25 MG/3 ML VIAL.NEB NEB SCH ×6 (03:44→23:41)
[2022-07-02] MEDS: INSULIN REGULAR, HUMAN 100 UNIT/ML 3 ML VIAL SQ PRN ×4 (06:32→21:49)
[2022-07-02] MEDS: BLOOD SUGAR DIAGNOSTIC 1 EACH STRIP IN SCH ×4 (06:32→21:50)
--- NOTE | 2022-07-02 06:45 | NUR ---
HOTEL BAGGAGE HANDLER CLOSING NOTE; PATIENT IN BED AAOX4 ABLE TO MAKE NEEDS KNOWN,ON ROOM AIR TOLERATING WELL SATTING 98%,NO SIGN SOB/DISTRESS NOTED,NO COMPLAIN OF PAIN/DISCOMFORT DURING SHIFT,DUE MEDS GIVEN ORDER,ALL NEEDS ATTENDED,IV ACCESS ON LAC G20 SL,SOL CATHETER DRAINING TO YELLOW COLORED URINE OUT 400ML,NO ODOR NOTED,SAFETY PRECAUTIONS IMPLEMENTED, BED IN LOW POSITION, LOCKED, SIDE RAILS UP X 3, CALL ENDORSED TO NEXT SHIFT.
[2022-07-02 07:00] VITALS: BP 115/55
--- NOTE | 2022-07-02 07:16 | NUR ---
HASHER MACHINE OPERATOR OPENING NOTES RECEIVED PATIENT SLEEPING IN BED, A/Ox4 ABLE TO MAKE NEEDS KNOWN. PATIENT ON ROOM AIR NO S/S OF RESPIRATORY DISTRESS. IV ACCESS L AC #20G S/L. INTACT AND PATENT. PATIENT ON TELE MONITORING SHOWING SINUS HR 78, NO S/S OF CHEST PAIN OR DISCOMFORT. PATIENT HAS FC DRAINING CLEAR LIGHT YELLOW URINE. PATIENT CONTINENT. SKIN INTACT. SAFETY MEASURES IN PLACE: BED LOCKED AND IN LOWEST POSITION, HOB ELEVATED, CALL LIGHT WITHIN REACH, SIDE RAILS UPx2, CALL LIGHT WITHIN REACH. WILL CONTINUE TO MONITOR.
[2022-07-02 08:00] VITALS: BP 115/55
[2022-07-02] MEDS: LISINOPRIL (20MG) 20 MG TABLET PO SCH (09:00)
[2022-07-02] MEDS: METOPROLOL SUCCINATE 25 MG TAB.SR.24H PO SCH (09:46)
[2022-07-02] MEDS: FUROSEMIDE 40 MG/4 ML VIAL IV SCH (09:46)
[2022-07-02] MEDS: ASPIRIN 81 MG TAB.CHEW PO SCH (09:46)
[2022-07-02] MEDS: NIFEDIPINE XL 60 MG TAB.ER.24 PO SCH (09:48)
[2022-07-02] MEDS: HEPARIN SODIUM, PORCINE 5000 UNITS/1 ML VIAL SQ SCH ×2 (09:49→17:07)
[2022-07-02 10:23] LABS: BASOPHILS % (AUTO) 0.6 % (0.0-2.0); EOSINOPHILS % (AUTO) 4.2 % (0.0-6.0); HEMATOCRIT 23 % (33-45); HEMOGLOBIN 7.7 g/dL (11.5-14.8); LYMPHOCYTES # (AUTO) 1.3 K/uL (0.8-4.8); LYMPHOCYTES % (AUTO) 15.9 % (20.0-44.0); MEAN CORPUSCULAR HGB CONC 33 g/dl (31.0-36.0); MEAN CORPUSCULAR VOLUME 88 fL (82-100); MONOCYTES # (AUTO) 0.6 K/uL (0.1-1.30); MONOCYTES % (AUTO) 6.8 % (2.0-12.0); NEUTROPHILS % (AUTO) 72.5 % (43.0-81.0); PLATELET COUNT (AUTO) 415 K/uL (150-450); RED BLOOD CELL COUNT(AUTO) 2.63 MIL/uL (4.0-5.2); WHITE BLOOD COUNT (AUTO) 8.3 K/uL (4.3-11.0)
[2022-07-02 10:31] LABS: CALCIUM, SERUM 7.4 mg/dL (8.5-10.1); CREATININE 5.5 mg/dL (0.6-1.3); POTASSIUM 3.8 mmol/L (3.5-5.1)
[2022-07-02 12:00] VITALS: BP 146/63
[2022-07-02 16:00] VITALS: BP 143/70
[2022-07-02] MEDS: ATORVASTATIN 40 MG TABLET PO SCH (17:09)
--- NOTE | 2022-07-02 18:51 | NUR ---
MS RN CLOSING NOTES PATIENT SLEEPING IN BED, A/Ox4 ABLE TO MAKE NEEDS KNOWN. PATIENT STABLE ON ROOM AIR NO S/S OF RESPIRATORY DISTRESS. IV ACCESS L AC #20G S/L. INTACT AND PATENT. NO S/S OF CHEST PAIN OR DISCOMFORT. PATIENT HAS FC DRAINING CLEAR LIGHT YELLOW URINE. PATIENT CONTINENT. SKIN INTACT. SAFETY MEASURES MAINTAINED: BED LOCKED AND IN LOWEST POSITION, HOB ELEVATED, CALL LIGHT WITHIN REACH, SIDE RAILS UPx2, CALL LIGHT WITHIN REACH. WILL ENDORSE TO NEXT SHIFT ANY GABRIELLE.
--- NOTE | 2022-07-02 19:25 | NUR ---
GARMENT FORM ASSEMBLER OPENING NOTE; RECEIVED PATIENT IN BED AAOX4 ABLE TO MAKE NEEDS KNOWN,ON ROOM AIR TOLERATING WELL SATTING 99%,NO SIGN SOB/DISTRESS NOTED,NO COMPLAIN OF PAIN/DISCOMFORT AT THIS TIME,IV ACCESS ON LAC G20 SL,SOL CATHETER DRAINING TO YELLOW COLORED URINE,NO ODOR NOTED,SAFETY PRECAUTIONS IMPLEMENTED, BED IN LOW POSITION, LOCKED, SIDE RAILS UP X 3, CALL LIGHT WITHIN REACH; WILL CONTINUE TO MONITOR.
[2022-07-02 20:00] VITALS: BP 125/68
[2022-07-02] MEDS: CEFTRIAXONE 1 G in IV D5W 50 ML IV SCH (21:08)
[2022-07-03] MEDS: ALBUTEROL HALF STRENGTH 1.25 MG/3 ML VIAL.NEB NEB SCH ×6 (03:59→23:29)
[2022-07-03] MEDS: IPRATROPIUM NEB FS 0.5 MG/2.5 ML AMPUL.NEB NEB SCH ×6 (03:59→23:29)
[2022-07-03] MEDS: NITROGLYCERIN PACKET 1 GM PACKET TOP SCH ×3 (05:06→18:01)
[2022-07-03] MEDS: BLOOD SUGAR DIAGNOSTIC 1 EACH STRIP IN SCH ×4 (05:31→22:05)
[2022-07-03 05:46] LABS: BASOPHILS % (AUTO) 0.4 % (0.0-2.0); EOSINOPHILS % (AUTO) 4.5 % (0.0-6.0); HEMATOCRIT 23 % (33-45); HEMOGLOBIN 7.6 g/dL (11.5-14.8); LYMPHOCYTES # (AUTO) 1.6 K/uL (0.8-4.8); LYMPHOCYTES % (AUTO) 19.6 % (20.0-44.0); MEAN CORPUSCULAR HGB CONC 33 g/dl (31.0-36.0); MEAN CORPUSCULAR VOLUME 89 fL (82-100); MONOCYTES # (AUTO) 0.6 K/uL (0.1-1.30); MONOCYTES % (AUTO) 6.7 % (2.0-12.0); NEUTROPHILS # (AUTO) 5.7 K/uL (1.8-8.9); NEUTROPHILS % (AUTO) 68.8 % (43.0-81.0); PLATELET COUNT (AUTO) 400 K/uL (150-450); RED BLOOD CELL COUNT(AUTO) 2.56 MIL/uL (4.0-5.2); WHITE BLOOD COUNT (AUTO) 8.3 K/uL (4.3-11.0)
[2022-07-03 06:08] LABS: CALCIUM, SERUM 7.5 mg/dL (8.5-10.1); CREATININE 5.6 mg/dL (0.6-1.3); MAGNESIUM 2.1 mg/dL (1.8-2.4); PHOSPHORUS 7.9 mg/dL (2.5-4.9); POTASSIUM 3.9 mmol/L (3.5-5.1)
--- NOTE | 2022-07-03 06:15 | NUR ---
RN CLOSING NOTE; PATIENT IN BED AAOX4 ABLE TO MAKE NEEDS KNOWN,ON ROOM AIR TOLERATING WELL SATTING 97%,NO SIGN SOB/DISTRESS NOTED,NO COMPLAIN OF PAIN/DISCOMFORT DURING SHIFT,DUE MEDS GIVEN ORDER,ALL NEEDS ATTENDED,IV ACCESS ON LAC G20 SL,PT D/C SOL CATH 0300,LAITH WELL NO PAIN ,DISCOMFORT NOTED.SAFETY PRECAUTIONS IMPLEMENTED, BED IN LOW POSITION, LOCKED, SIDE RAILS UP X 3, CALL LIGHT WITHIN REACH,WILL ENDORSED TO NEXT SHIFT
--- NOTE | 2022-07-03 07:40 | NUR ---
MS RN OPENING NOTE RECEIVED PATIENT IN BED AWAKE WITH BLURRY VISION ; A/O X 4, VERBALLY RESPONSIVE AND ABLE TO MAKE NEEDS KNOWN ; ON ROOM AIR TOLERATING WELL WITH NO SOB OR DISTRESS NOTED; NO C/O OF PAIN AND DISCOMFORT , IV ACCESS ON LAC G20 SALINE LOCK, INTACT ; ENCOURAGED VERBALIZATION OF NEEDS; SAFETY PRECAUTIONS IMPLEMENTED, BED IN LOW POSITION, LOCKED, SIDE RAILS UP X 3, CALL LIGHT WITHIN REACH; WILL CONTINUE TO MONITOR FOR ANY CHANGES
[2022-07-03 08:00] VITALS: BP 141/68
[2022-07-03] MEDS: ASPIRIN 81 MG TAB.CHEW PO SCH (09:21)
[2022-07-03] MEDS: METOPROLOL SUCCINATE 25 MG TAB.SR.24H PO SCH (09:21)
[2022-07-03] MEDS: NIFEDIPINE XL 60 MG TAB.ER.24 PO SCH (09:23)
[2022-07-03] MEDS: HEPARIN SODIUM, PORCINE 5000 UNITS/1 ML VIAL SQ SCH ×2 (09:28→18:04)
[2022-07-03] MEDS: INSULIN REGULAR, HUMAN 100 UNIT/ML 3 ML VIAL SQ PRN ×3 (12:43→21:23)
[2022-07-03 16:05] VITALS: BP 156/73
[2022-07-03] MEDS: ATORVASTATIN 40 MG TABLET PO SCH (18:01)
--- NOTE | 2022-07-03 19:29 | NUR ---
RN OPENING NOTE; RECEIVED PATIENT IN BED AAOX4 ABLE TO MAKE NEEDS KNOWN,ON ROOM AIR TOLERATING WELL SATTING 97.2%,NO SIGN SOB/DISTRESS NOTED,NO COMPLAIN OF PAIN/DISCOMFORT AT THIS TIME,IV ACCESS ON LAC G20 SL,SAFETY PRECAUTIONS IMPLEMENTED, BED IN LOW POSITION, LOCKED, SIDE RAILS UP X 3, CALL LIGHT WITHIN REACH; WILL CONTINUE TO MONITOR.
--- NOTE | 2022-07-03 19:41 | NUR ---
MS RN CLOSING NOTE PATIENT IN BED AWAKE WITH BLURRY VISION ; A/O X 4, VERBALLY RESPONSIVE AND ABLE TO MAKE NEEDS KNOWN ; ON ROOM AIR TOLERATING WELL WITH NO SOB OR DISTRESS NOTED; NO C/O OF PAIN AND DISCOMFORT , IV ACCESS ON LAC G20 SALINE LOCK, INTACT ; ENCOURAGED VERBALIZATION OF NEEDS; ALL DUE MEDS GIVEN ORDERED ,PATIENT CLEARED FOR DISCHARGE BY CARDIO AND PULMO BUT DISCHARGE ORDER WAS CANCELLED DUE TO HIGH BUN AND DR NAVARRETE WANTS THE PATIENT TO HAVE DIALYSIS , PATIENT STILL UNDECIDED AT THIS TIME , SAFETY PRECAUTIONS IMPLEMENTED, BED IN LOW POSITION, LOCKED, SIDE RAILS UP X 3, CALL LIGHT WITHIN REACH; ENDORSED TO THE NEXT SHIFT
[2022-07-03 20:00] VITALS: BP 148/71
[2022-07-03] MEDS: CEFTRIAXONE 1 G in IV D5W 50 ML IV SCH (21:00)
[2022-07-04] MEDS: NITROGLYCERIN PACKET 1 GM PACKET TOP SCH ×3 (00:27→12:15)
[2022-07-04] MEDS: IPRATROPIUM NEB FS 0.5 MG/2.5 ML AMPUL.NEB NEB SCH ×4 (02:30→14:37)
[2022-07-04] MEDS: ALBUTEROL HALF STRENGTH 1.25 MG/3 ML VIAL.NEB NEB SCH ×4 (02:31→14:37)
[2022-07-04] MEDS: INSULIN REGULAR, HUMAN 100 UNIT/ML 3 ML VIAL SQ PRN ×2 (05:54→12:27)
--- NOTE | 2022-07-04 06:19 | NUR ---
RN CLOSING NOTE; PATIENT IN BED AAOX4 ABLE TO MAKE NEEDS KNOWN,ON ROOM AIR TOLERATING WELL SATTING 97%,NO SIGN SOB/DISTRESS NOTED,NO COMPLAIN OF PAIN/DISCOMFORT DURING SHIFT,DUE MEDS GIVEN ORDER,ALL NEEDS ATTENDED,IV ACCESS ON LAC G20 SL,SAFETY PRECAUTIONS IMPLEMENTED, BED IN LOW POSITION, LOCKED, SIDE RAILS UP X 3, CALL LIGHT WITHIN REACH,WILL ENDORSED TO NEXT SHIFT
[2022-07-04] MEDS: BLOOD SUGAR DIAGNOSTIC 1 EACH STRIP IN SCH ×3 (06:35→17:22)
[2022-07-04 08:00] VITALS: BP 139/58
[2022-07-04] MEDS: HEPARIN SODIUM, PORCINE 5000 UNITS/1 ML VIAL SQ SCH (08:41)
[2022-07-04] MEDS: ASPIRIN 81 MG TAB.CHEW PO SCH (08:47)
[2022-07-04] MEDS: METOPROLOL SUCCINATE 25 MG TAB.SR.24H PO SCH (08:47)
[2022-07-04] MEDS: NIFEDIPINE XL 60 MG TAB.ER.24 PO SCH (08:48)
--- NOTE | 2022-07-04 10:30 | NUR ---
RN NOTES SEEN BY DR FITZGERALD - CHEMICAL INSPECTOR AND EXPLAIN REGARDING HAVING DIALYSIS DUE TO HIGH BUN IN THE BODY AND PATIENT WAS EXPLAINED WITH POSSIBLE COMPLICATIONS THAT WILL HAPPENED , PATIENT IS ALERT AND ORIENTED AND UNDERSTOOD WHAT WAS EXPLAINED TO HER , PATIENT STILL UNDECIDED AT THIS TIME AND SHE SAID SHES GONNA DISCUSS WITH HER FAMILY FIRST AND DR ARTHUR SAID SAID THAT ITS OK FOR HER TO GO HOME .
[2022-07-04 12:15] VITALS: BP 136/60
--- NOTE | 2022-07-04 17:30 | NUR ---
LABOR TRAINING MANAGER NOTES PATIENT IS WITH DISCHARGE ORDER TODAY TO HOME , DISCHARGE PAPERS WERE PREPARED AND INSTRUCTIONS PROVIDED REGARDING NEW MEDICATIONS ORDERED , DIET , SAFETY , BLOOD SUGAR CHECK AT HOME AND WHEN TO CALL 911 IN CASE OF EMERGENCY , PATIENT IS ALERT AND ORIENTED AND ABLE TO UNDERSTAND INSTRUCTIONS PROVIDED , FAMILY WILL PROVIDE TRANSPORTATION VIA PRIVATE CAR AND ALL BELONGINGS WERE TAKEN AND FORM WAS SIGNED , PATIENT LEFT WITH NO SOB OR DISTRESS NOTED . ASSISTED TO THE LOBBY AND LEFT IN A STABLE CONDITION .
== END 2022-07-04 18:43 | disposition home health service (06) | DRG 133 ==
LOC: ER 20:34 → TELE-TD 06-27 02:08 → TELE1 06-27 02:25 → ICU 06-27 09:08 → MED 06-28 15:13 → TELE 06-29 05:28 → MED 07-02 16:00
PROVIDERS: ADMIT Nurse Practitioner Acute Care; ATTEND Nurse Practitioner Acute Care
PROC: 5A09357 Assistance with Respiratory Ventilation, Less than 24 Consecutive Hours, Continuous Positive Airway Pressure (ICD-10-PCS; principal; 2022-06-27)
DX: J96.01 Acute respiratory failure with hypoxia (principal); N17.0 Acute kidney failure with tubular necrosis; I21.A1 Myocardial infarction type 2; I50.33 Acute on chronic diastolic (congestive) heart failure; G92.8 Other toxic encephalopathy; I13.0 Hypertensive heart and chronic kidney disease with heart failure and stage 1 through stage 4 chronic kidney disease, or unspecified chronic kidney disease; I16.0 Hypertensive urgency; Z20.822 Contact with and (suspected) exposure to COVID-19; N18.9 Chronic kidney disease, unspecified; E78.5 Hyperlipidemia, unspecified; E11.22 Type 2 diabetes mellitus with diabetic chronic kidney disease; I25.10 Atherosclerotic heart disease of native coronary artery without angina pectoris; Z86.73 Personal history of transient ischemic attack (TIA), and cerebral infarction without residual deficits; Z79.899 Other long term (current) drug therapy; Z79.4 Long term (current) use of insulin; E83.39 Other disorders of phosphorus metabolism; I25.2 Old myocardial infarction; I70.0 Atherosclerosis of aorta
CPT/HCPCS: 36415; 36600; 71045-TC; 76770-TC; 80048-TC; 80061-TC; 80076-TC; 81001; 82570-TC; 82803-TC; 82962-TC; 83735-TC; 83880; 84100-TC; 84300-TC; 84484-TC; 85025-TC; 86706; 86803; 87081-TC; 87086-TC; 87340; 93307-TC; 94660; 94799-TC; 97116-TC; 97530-TC; C9803; G0378; J0360; J0696; J1644; J1815; J1940; J2930; J7040; J7050; J7060

== ENCOUNTER 2022-12-29 09:13 | Inpatient (IN) | payer OTHER ==
[~2022-12-29] VITALS: Ht 154.9 cm; Wt 59.9 kg
[2022-12-29] VITALS (29 sets, daily range): BP systolic 80–204; BP diastolic 65–91; TEMP 98–98.8; O2SAT 96–100
[~2022-12-29 09:13] MED LIST changes: +ASPI-1169 PO; +BUME0.5T6 PO; +CALC667C6 PO; +NIFE-34 PO; -NIFE60TA73 PO
[2022-12-29] MEDS ORDERED: methylPREDNISolone SOD SUCC 125 MG/2ML VIAL IV ONE (09:30)
[2022-12-29] MEDS ORDERED: ALBUTEROL FS 2.5 MG/3 ML VIAL.NEB CONTNEB ONE (09:30)
[2022-12-29] MEDS ORDERED: IPRATROPIUM NEB FS 0.5 MG/2.5 ML AMPUL.NEB NEB ONE (09:30)
[2022-12-29] MEDS ORDERED: ALBUTEROL FS 2.5 MG/3 ML VIAL.NEB ONE (09:38)
[2022-12-29] MEDS ORDERED: IPRATROPIUM NEB FS 0.5 MG/2.5 ML AMPUL.NEB ONE (09:39)
[2022-12-29] MEDS ORDERED: methylPREDNISolone SOD SUCC 125 MG/2ML VIAL ONE (09:40)
[2022-12-29 09:41] LABS: BASOPHILS # (AUTO) 0.1 K/uL (0.0-0.2); BASOPHILS % (AUTO) 0.7 % (0.0-2.0); EOSINOPHILS # (AUTO) 0.2 K/uL (0.0-0.7); EOSINOPHILS % (AUTO) 1.4 % (0.0-6.0); HEMATOCRIT 23 % (33-45); HEMOGLOBIN 7.4 g/dL (11.5-14.8); LYMPHOCYTES % (AUTO) 11.8 % (20.0-44.0); MEAN CORPUSCULAR HEMOGLOBIN 28 PG (26.0-33.0); MEAN CORPUSCULAR HGB CONC 33 g/dl (31.0-36.0); MEAN CORPUSCULAR VOLUME 86 fL (82-100); MONOCYTES # (AUTO) 0.6 K/uL (0.1-1.30); MONOCYTES % (AUTO) 3.6 % (2.0-12.0); NEUTROPHILS # (AUTO) 13.7 K/uL (1.8-8.9); NEUTROPHILS % (AUTO) 82.5 % (43.0-81.0); PLATELET COUNT (AUTO) 838 K/uL (150-450); RED BLOOD CELL COUNT(AUTO) 2.62 MIL/uL (4.0-5.2); RED CELL DISTRIBUTION WIDTH 14.5 % (11.5-15.0); WHITE BLOOD COUNT (AUTO) 16.6 K/uL (4.3-11.0)
[2022-12-29 09:52] LABS: CALCIUM, SERUM 8.3 mg/dL (8.5-10.1); CARBON DIOXIDE 19 mmol/L (21-32); CHLORIDE 99 mmol/L (98-107); CREATININE 6.5 mg/dL (0.6-1.3); GLUCOSE 143 mg/dL (74-106); POTASSIUM 3.1 mmol/L (3.5-5.1); SODIUM SERUM 138 mmol/L (136-145); UREA NITROGEN, BLOOD 74 mg/dL (7-18)
[2022-12-29] MEDS ORDERED: CEFTRIAXONE 1GM BAG (ER ONLY) 50 ML IV ONE ×2 (10:00)
[2022-12-29] MEDS ORDERED: AZITHROMYCIN 500 MG in IV D5W 250 ML IV ONE (10:00)
[2022-12-29 10:04] LABS: NT-PRO BNP > 25000 pg/mL (0-125)
[2022-12-29] MEDS ORDERED: BUMETANIDE INJ 0.25 MG/ML VIAL ONE (10:14)
[2022-12-29] MEDS ORDERED: BUMETANIDE INJ 0.25 MG/ML VIAL IV ONE (10:30)
[2022-12-29] MEDS ORDERED: NIFE90TA38 PO (10:45)
[2022-12-29] MEDS ORDERED: BUME0.5T6 PO (10:45)
[2022-12-29] MEDS ORDERED: CHOL100043 PO (10:45)
[2022-12-29] MEDS ORDERED: METO25TA4 PO (10:45)
[2022-12-29] MEDS ORDERED: ACETAMINOPHEN 325 MG TABLET PO PRN (11:00)
[2022-12-29] MEDS ORDERED: ONDANSETRON HCL/PF 4 MG/2 ML VIAL IVP PRN (11:00)
[2022-12-29] MEDS ORDERED: MAGNESIUM HYDROXIDE 30 ML UDC PO PRN (11:00)
[2022-12-29] MEDS ORDERED: Z GUARD REMEDY 4 OZ OINT TP PRN (11:00)
[2022-12-29] MEDS ORDERED: DEXTROSE 50%-WATER 50 ML DISP.SYRIN IV PRN (11:00)
[2022-12-29] MEDS ORDERED: ALBUTEROL FS 2.5 MG/3 ML VIAL.NEB NEB PRN (11:00)
[2022-12-29] MEDS ORDERED: MAG HYDROX/AL HYDROX/SIMETH 30 ML UDC PO PRN (11:00)
[2022-12-29] MEDS ORDERED: IPRATROPIUM NEB FS 0.5 MG/2.5 ML AMPUL.NEB NEB PRN (11:00)
[2022-12-29] MEDS ORDERED: MORPHINE SULFATE INJ 2 MG/ML DISP.SYRIN IV PRN (11:00)
[2022-12-29 11:01] LABS: ABG BASE EXCESS -2.9 mmol/L; ABG OXYGEN SATURATION 99.2 % (92.0-98.5); ABG PCO2 30.9 mmHg (35.0-45.0); ABG PH 7.445 (7.350-7.450); ABG PO2 206.2 mmHg (75.0-100.0); ABG TOTAL HEMOGLOBIN 6.9 G/dL (12.0-16.0); COHb 0.3 % (0.5-1.5); MetHb 0.5 % (0.0-1.5); O2Hb 98.4 % (94.0-97.0); SITE, ABG Left Radial; VENT MODE, BG ST 18/5 40%
[2022-12-29] MEDS: BLOOD SUGAR DIAGNOSTIC 1 EACH STRIP IN SCH ×3 (12:00→21:22)
[2022-12-29] MEDS ORDERED: BUMETANIDE INJ 8 MG in IV NS 0.9% 48 ML IV ONE (14:00)
[2022-12-29] MEDS: INSULIN REGULAR, HUMAN 100 UNIT/ML 3 ML VIAL SQ PRN ×2 (16:27→21:22)
[2022-12-29] MEDS: hydrALAZINE HCL IV 20 MG VIAL IV PRN ×2 (16:32→21:23)
[2022-12-29] MEDS ORDERED: NIFEdipine (10MG) 10 MG CAPSULE PO SCH (18:30)
[2022-12-29] MEDS ORDERED: LORAZEPAM INJ 2 MG/ML VIAL IV PRN (18:30)
[2022-12-29] MEDS: METOPROLOL SUCCINATE 25 MG TAB.SR.24H PO SCH (18:48)
[2022-12-29] MEDS: NIFEdipine XL (30MG) 30 MG TAB PO SCH (18:48)
[2022-12-29] MEDS: HEPARIN SODIUM, PORCINE 5000 UNITS/1 ML VIAL SQ SCH (20:29)
[2022-12-29] MEDS ORDERED: FUROSEMIDE 40 MG/4 ML VIAL IV SCH (21:00)
[2022-12-30] VITALS (34 sets, daily range): BP systolic 129–166; BP diastolic 58–75; TEMP 97.6–98.6; O2SAT 99–100
[2022-12-30 04:56] LABS: BASOPHILS % (AUTO) 0.3 % (0.0-2.0); LYMPHOCYTES # (AUTO) 0.4 K/uL (0.8-4.8); LYMPHOCYTES % (AUTO) 3.3 % (20.0-44.0); MEAN CORPUSCULAR HEMOGLOBIN 28 PG (26.0-33.0); MEAN CORPUSCULAR HGB CONC 33 g/dl (31.0-36.0); MEAN CORPUSCULAR VOLUME 86 fL (82-100); MONOCYTES # (AUTO) 0.2 K/uL (0.1-1.30); MONOCYTES % (AUTO) 1.6 % (2.0-12.0); NEUTROPHILS # (AUTO) 12.3 K/uL (1.8-8.9); NEUTROPHILS % (AUTO) 94.8 % (43.0-81.0); PLATELET COUNT (AUTO) 719 K/uL (150-450); RED BLOOD CELL COUNT(AUTO) 2.34 MIL/uL (4.0-5.2); RED CELL DISTRIBUTION WIDTH 14.7 % (11.5-15.0)
[2022-12-30 05:08] LABS: CALCIUM, SERUM 8.2 mg/dL (8.5-10.1); MAGNESIUM 2.3 mg/dL (1.8-2.4); PHOSPHORUS 5.8 mg/dL (2.5-4.9); POTASSIUM 3.9 mmol/L (3.5-5.1)
[2022-12-30 05:25] LABS: HEMATOCRIT 20 % (33-45); HEMOGLOBIN 6.5 g/dL (11.5-14.8)
[2022-12-30] MEDS: BLOOD SUGAR DIAGNOSTIC 1 EACH STRIP IN SCH ×4 (07:37→21:51)
[2022-12-30] MEDS: PANTOPRAZOLE 40 MG TABLET.DR PO SCH (08:17)
[2022-12-30] MEDS: NIFEdipine XL (30MG) 30 MG TAB PO SCH (08:17)
[2022-12-30] MEDS: HEPARIN SODIUM, PORCINE 5000 UNITS/1 ML VIAL SQ SCH ×2 (08:18→21:00)
[2022-12-30] MEDS ORDERED: BUMETANIDE INJ 8 MG in IV D5W 48 ML IV ONE (08:30)
[2022-12-30] MEDS ORDERED: PANTOPRAZOLE 40 MG VIAL IV SCH (09:00)
[2022-12-30] MEDS ORDERED: dexaMETHasone SOD PHOSPHATE 10 MG/ML VIAL IV SCH (09:00)
[2022-12-30 09:09] LABS: APPEARANCE,URINE SLIGHTLY CLOUDY (CLEAR); BILIRUBIN,URINE NEGATIVE (NEGATIVE); BLOOD, URINE 3+ Ery/uL (NEGATIVE); COLOR,URINE YELLOW (YELLOW); KETONES,URINE NEGATIVE (NEGATIVE); LEUKOCYTE ESTERASE ,URINE NEGATIVE (NEGATIVE); NITRITE, URINE NEGATIVE (NEGATIVE); PH,URINE 5.5 (5.0-8.0); PROTEIN,URINE 3+ mg/dl (NEGATIVE); UGLUCOSE NEGATIVE (NEGATIVE); UROBILINOGEN,URINE 0.2 EU/dL (0.2)
[2022-12-30 09:16] LABS: ABG BASE EXCESS -2.6 mmol/L; ABG OXYGEN SATURATION 91.7 % (92.0-98.5); ABG PCO2 29.8 mmHg (35.0-45.0); ABG PH 7.461 (7.350-7.450); ABG PO2 58.3 mmHg (75.0-100.0); ABG TOTAL HEMOGLOBIN 7.3 G/dL (12.0-16.0); AaDO2 106.2 mmHg; COHb 0.4 % (0.5-1.5); MetHb 0.3 % (0.0-1.5); O2Hb 91.1 % (94.0-97.0); SITE, ABG Right Radial; VENT MODE, BG NASAL CANNULA
[2022-12-30 09:22] LABS: ADD URINE CULTURE NO; BACTERIA,URINE Rare /HPF (None Seen); EOSINOPHIL,URINE None Seen; SQUAMOUS EPITHELIAL CELL,UR Few /HPF (None Seen); WBC,URINE 0-2 /HPF (0-3)
[2022-12-30 09:53] LABS: CREATININE, URINE 117.1 MG/DL (30.0-125.0); URINE TOTAL PROTEIN 211.7 mg/dL (0-11.9)
[2022-12-30] MEDS: CEFTRIAXONE 1 G in IV D5W 50 ML IV SCH (10:00)
[2022-12-30] MEDS: INSULIN REGULAR, HUMAN 100 UNIT/ML 3 ML VIAL SQ PRN ×2 (12:12→21:57)
[2022-12-30 13:45] LABS: ANISOCYTOSIS 1+; BAND % (MANUAL) 7 % (0.0-5.0); BASOPHILS % (MANUAL) 0 % (0.0-2.0); EOSINOPHILS % (MANUAL) 0 % (0-4); LYMPHOCYTES % (MANUAL) 5 % (16-48); MONOCYTES % (MANUAL) 3 % (0-11.0); NEUTROPHILS % (MANUAL) 85 (42-76); PLATELET ESTIMATE ADEQUATE
[2022-12-30] MEDS: METOPROLOL SUCCINATE 25 MG TAB.SR.24H PO SCH (17:01)
[2022-12-31] VITALS (18 sets, daily range): BP systolic 138–159; BP diastolic 56–69; TEMP 97.4–98.7; O2SAT 96–100
[2022-12-31 04:40] LABS: BASOPHILS % (AUTO) 0.3 % (0.0-2.0); EOSINOPHILS # (AUTO) 0.1 K/uL (0.0-0.7); HEMATOCRIT 24 % (33-45); HEMOGLOBIN 8.1 g/dL (11.5-14.8); LYMPHOCYTES # (AUTO) 0.9 K/uL (0.8-4.8); LYMPHOCYTES % (AUTO) 8.8 % (20.0-44.0); MEAN CORPUSCULAR HEMOGLOBIN 30 PG (26.0-33.0); MEAN CORPUSCULAR HGB CONC 34 g/dl (31.0-36.0); MEAN CORPUSCULAR VOLUME 88 fL (82-100); MONOCYTES # (AUTO) 0.6 K/uL (0.1-1.30); NEUTROPHILS # (AUTO) 8.9 K/uL (1.8-8.9); NEUTROPHILS % (AUTO) 83.9 % (43.0-81.0); PLATELET COUNT (AUTO) 646 K/uL (150-450); RED BLOOD CELL COUNT(AUTO) 2.71 MIL/uL (4.0-5.2); RED CELL DISTRIBUTION WIDTH 15.1 % (11.5-15.0); WHITE BLOOD COUNT (AUTO) 10.7 K/uL (4.3-11.0)
[2022-12-31 05:16] LABS: ALBUMIN 2.4 g/dL (3.4-5.0); BILIRUBIN,TOTAL 0.2 mg/dL (0.2-1.0); CALCIUM, SERUM 7.8 mg/dL (8.5-10.1); CREATININE 6.5 mg/dL (0.6-1.3); MAGNESIUM 2.2 mg/dL (1.8-2.4); PHOSPHORUS 6.6 mg/dL (2.5-4.9); POTASSIUM 3.3 mmol/L (3.5-5.1); TOTAL PROTEIN, SERUM 6.7 g/dL (6.4-8.2)
[2022-12-31] MEDS: PANTOPRAZOLE 40 MG TABLET.DR PO SCH (07:49)
[2022-12-31] MEDS: BLOOD SUGAR DIAGNOSTIC 1 EACH STRIP IN SCH ×4 (08:14→22:18)
[2022-12-31] MEDS: NIFEdipine XL (30MG) 30 MG TAB PO SCH (08:16)
[2022-12-31] MEDS: HEPARIN SODIUM, PORCINE 5000 UNITS/1 ML VIAL SQ SCH ×2 (08:19→20:48)
[2022-12-31] MEDS: ATORVASTATIN 10 MG TABLET PO SCH (09:25)
[2022-12-31] MEDS: CEFTRIAXONE 1 G in IV D5W 50 ML IV SCH (09:25)
[2022-12-31] MEDS ORDERED: IV NS 0.9% 250 ML IV PRN (09:30)
[2022-12-31] MEDS ORDERED: POTASSIUM CHLORIDE 10 MEQ TABLET.SA PO ONE (11:00)
[2022-12-31] MEDS: INSULIN REGULAR, HUMAN 100 UNIT/ML 3 ML VIAL SQ PRN ×2 (12:16→22:22)
[2022-12-31] MEDS: METOPROLOL SUCCINATE 25 MG TAB.SR.24H PO SCH (18:07)
[2023-01-01] VITALS (7 sets, daily range): BP systolic 136–161; BP diastolic 59–70; TEMP 97.6–98.4; O2SAT 96–99
[2023-01-01 06:24] LABS: BASOPHILS % (AUTO) 0.4 % (0.0-2.0); EOSINOPHILS # (AUTO) 0.2 K/uL (0.0-0.7); EOSINOPHILS % (AUTO) 2.1 % (0.0-6.0); HEMATOCRIT 25 % (33-45); HEMOGLOBIN 8.2 g/dL (11.5-14.8); LYMPHOCYTES # (AUTO) 0.7 K/uL (0.8-4.8); LYMPHOCYTES % (AUTO) 6.6 % (20.0-44.0); MEAN CORPUSCULAR HEMOGLOBIN 29 PG (26.0-33.0); MEAN CORPUSCULAR HGB CONC 33 g/dl (31.0-36.0); MEAN CORPUSCULAR VOLUME 88 fL (82-100); MONOCYTES # (AUTO) 0.6 K/uL (0.1-1.30); MONOCYTES % (AUTO) 5.4 % (2.0-12.0); NEUTROPHILS # (AUTO) 8.9 K/uL (1.8-8.9); NEUTROPHILS % (AUTO) 85.5 % (43.0-81.0); PLATELET COUNT (AUTO) 644 K/uL (150-450); RED BLOOD CELL COUNT(AUTO) 2.87 MIL/uL (4.0-5.2); WHITE BLOOD COUNT (AUTO) 10.4 K/uL (4.3-11.0)
[2023-01-01 06:36] LABS: CALCIUM, SERUM 8.1 mg/dL (8.5-10.1); CREATININE 6.2 mg/dL (0.6-1.3); POTASSIUM 3.5 mmol/L (3.5-5.1)
[2023-01-01] MEDS: BLOOD SUGAR DIAGNOSTIC 1 EACH STRIP IN SCH ×4 (08:06→21:52)
[2023-01-01] MEDS: PANTOPRAZOLE 40 MG TABLET.DR PO SCH (08:18)
[2023-01-01] MEDS: NIFEdipine XL (30MG) 30 MG TAB PO SCH (09:10)
[2023-01-01] MEDS: ATORVASTATIN 10 MG TABLET PO SCH (09:10)
[2023-01-01] MEDS: HEPARIN SODIUM, PORCINE 5000 UNITS/1 ML VIAL SQ SCH ×2 (09:12→21:52)
[2023-01-01] MEDS: CEFTRIAXONE 1 G in IV D5W 50 ML IV SCH (10:52)
[2023-01-01] MEDS: INSULIN REGULAR, HUMAN 100 UNIT/ML 3 ML VIAL SQ PRN ×2 (12:04→21:53)
[2023-01-01] MEDS: CHOLECALCIFEROL 1,000 UNIT TABLET (VIT D3) PO SCH (15:27)
[2023-01-01] MEDS: METOPROLOL SUCCINATE 25 MG TAB.SR.24H PO SCH (18:30)
[2023-01-02] VITALS: BP 139/67; TEMP 98.5; O2SAT 97
[2023-01-02 04:00] VITALS: BP 149/72; TEMP 97.8; O2SAT 97
[2023-01-02 06:28] LABS: BASOPHILS % (AUTO) 0.3 % (0.0-2.0); EOSINOPHILS # (AUTO) 0.2 K/uL (0.0-0.7); EOSINOPHILS % (AUTO) 2.4 % (0.0-6.0); HEMATOCRIT 23 % (33-45); HEMOGLOBIN 7.8 g/dL (11.5-14.8); LYMPHOCYTES # (AUTO) 0.8 K/uL (0.8-4.8); LYMPHOCYTES % (AUTO) 8.8 % (20.0-44.0); MEAN CORPUSCULAR HEMOGLOBIN 29 PG (26.0-33.0); MEAN CORPUSCULAR HGB CONC 34 g/dl (31.0-36.0); MEAN CORPUSCULAR VOLUME 87 fL (82-100); MONOCYTES # (AUTO) 0.4 K/uL (0.1-1.30); MONOCYTES % (AUTO) 4.1 % (2.0-12.0); NEUTROPHILS # (AUTO) 7.2 K/uL (1.8-8.9); NEUTROPHILS % (AUTO) 84.4 % (43.0-81.0); PLATELET COUNT (AUTO) 538 K/uL (150-450); RED BLOOD CELL COUNT(AUTO) 2.65 MIL/uL (4.0-5.2); RED CELL DISTRIBUTION WIDTH 15.1 % (11.5-15.0); WHITE BLOOD COUNT (AUTO) 8.6 K/uL (4.3-11.0)
[2023-01-02 06:58] LABS: ALBUMIN 2.4 g/dL (3.4-5.0); BILIRUBIN,TOTAL 0.2 mg/dL (0.2-1.0); CALCIUM, SERUM 7.7 mg/dL (8.5-10.1); MAGNESIUM 2.3 mg/dL (1.8-2.4); PHOSPHORUS 6.1 mg/dL (2.5-4.9); POTASSIUM 3.4 mmol/L (3.5-5.1); TOTAL PROTEIN, SERUM 6.5 g/dL (6.4-8.2)
[2023-01-02 07:07] LABS: PTH, INTACT 188 pg/mL (15-65)
[2023-01-02] MEDS: PANTOPRAZOLE 40 MG TABLET.DR PO SCH (07:49)
[2023-01-02 08:00] VITALS: BP 158/70; TEMP 98.8; O2SAT 97
[2023-01-02] MEDS: BLOOD SUGAR DIAGNOSTIC 1 EACH STRIP IN SCH ×4 (08:02→21:23)
[2023-01-02 08:07] LABS: *SPE A/G RATIO 0.8 (0.7-1.7); *SPE ALBUMIN 2.7 g/dL (2.9-4.4); *SPE ALPHA-1-GLOBULIN 0.3 g/dL (0.0-0.4); *SPE ALPHA-2-GLOBULIN 1.1 g/dL (0.4-1.0); *SPE BETA GLOBULIN 0.9 g/dL (0.7-1.3); *SPE GLOBULIN, TOTAL 3.3 g/dL (2.2-3.9); *SPE M-SPIKE Not Observed g/dL (Not Observed)
[2023-01-02] MEDS ORDERED: BUMETANIDE (1 MG) 1 MG TABLET PO SCH ×2 (09:00)
[2023-01-02] MEDS: NIFEdipine XL (30MG) 30 MG TAB PO SCH (09:08)
[2023-01-02] MEDS: CHOLECALCIFEROL 1,000 UNIT TABLET (VIT D3) PO SCH (09:09)
[2023-01-02] MEDS: ATORVASTATIN 10 MG TABLET PO SCH (09:09)
[2023-01-02] MEDS: HEPARIN SODIUM, PORCINE 5000 UNITS/1 ML VIAL SQ SCH ×2 (09:14→21:22)
[2023-01-02] MEDS: CEFTRIAXONE 1 G in IV D5W 50 ML IV SCH (09:22)
[2023-01-02 12:00] VITALS: BP 161/71; TEMP 98.3; O2SAT 97
[2023-01-02 16:00] VITALS: BP 162/69; TEMP 97.9; O2SAT 98
[2023-01-02] MEDS: INSULIN REGULAR, HUMAN 100 UNIT/ML 3 ML VIAL SQ PRN ×2 (16:58→21:23)
[2023-01-02] MEDS: METOPROLOL SUCCINATE 25 MG TAB.SR.24H PO SCH (17:12)
[2023-01-02 20:00] VITALS: BP 157/69; TEMP 98.3; O2SAT 94
[2023-01-03] VITALS: BP_SYST 147; BP_SYST 157; BP_DIAS 67; BP_DIAS 69; TEMP 98.4; O2SAT 95
[2023-01-03 04:00] VITALS: BP 144/68; TEMP 98.7; O2SAT 96
[2023-01-03 07:00] VITALS: BP 127/61; TEMP 98.1; O2SAT 96
[2023-01-03 07:04] LABS: BASOPHILS # (AUTO) 0.1 K/uL (0.0-0.2); BASOPHILS % (AUTO) 0.6 % (0.0-2.0); EOSINOPHILS # (AUTO) 0.3 K/uL (0.0-0.7); EOSINOPHILS % (AUTO) 2.6 % (0.0-6.0); HEMATOCRIT 26 % (33-45); HEMOGLOBIN 8.8 g/dL (11.5-14.8); LYMPHOCYTES # (AUTO) 0.8 K/uL (0.8-4.8); MEAN CORPUSCULAR HEMOGLOBIN 30 PG (26.0-33.0); MEAN CORPUSCULAR HGB CONC 34 g/dl (31.0-36.0); MEAN CORPUSCULAR VOLUME 87 fL (82-100); MONOCYTES # (AUTO) 0.4 K/uL (0.1-1.30); MONOCYTES % (AUTO) 3.9 % (2.0-12.0); NEUTROPHILS # (AUTO) 8.3 K/uL (1.8-8.9); NEUTROPHILS % (AUTO) 84.9 % (43.0-81.0); PLATELET COUNT (AUTO) 603 K/uL (150-450); RED BLOOD CELL COUNT(AUTO) 2.97 MIL/uL (4.0-5.2); RED CELL DISTRIBUTION WIDTH 14.6 % (11.5-15.0); WHITE BLOOD COUNT (AUTO) 9.7 K/uL (4.3-11.0)
[2023-01-03] MEDS: BLOOD SUGAR DIAGNOSTIC 1 EACH STRIP IN SCH (07:33)
[2023-01-03 07:39] LABS: CALCIUM, SERUM 8.4 mg/dL (8.5-10.1); CREATININE 5.7 mg/dL (0.6-1.3); POTASSIUM 3.4 mmol/L (3.5-5.1)
[2023-01-03 08:00] VITALS: BP 127/61; TEMP 98.1; O2SAT 96
[2023-01-03] MEDS: HEPARIN SODIUM, PORCINE 5000 UNITS/1 ML VIAL SQ SCH (08:34)
[2023-01-03 08:36] VITALS: BP 124/61
[2023-01-03] MEDS: NIFEdipine XL (30MG) 30 MG TAB PO SCH (08:36)
[2023-01-03] MEDS: CHOLECALCIFEROL 1,000 UNIT TABLET (VIT D3) PO SCH (08:36)
[2023-01-03] MEDS: PANTOPRAZOLE 40 MG TABLET.DR PO SCH (08:37)
[2023-01-03] MEDS: ATORVASTATIN 10 MG TABLET PO SCH (08:37)
[2023-01-03] MEDS ORDERED: BUMETANIDE (1 MG) 1 MG TABLET PO SCH (09:00)
[2023-01-03] MEDS: CEFTRIAXONE 1 G in IV D5W 50 ML IV SCH (09:10)
== END 2023-01-03 11:00 | disposition left against medical advice (07) | DRG 194 ==
LOC: ER 09:21 → ICU 13:35 → TELE1 12-31 12:58
PROVIDERS: ADMIT Nurse Practitioner Acute Care; ATTEND Internal Medicine
PROC: 05H533Z Insertion of Infusion Device into Right Subclavian Vein, Percutaneous Approach (ICD-10-PCS; principal; 2022-12-29)
PROC: 5A09357 Assistance with Respiratory Ventilation, Less than 24 Consecutive Hours, Continuous Positive Airway Pressure (ICD-10-PCS; 2022-12-29)
PROC: B546ZZA Ultrasonography of Right Subclavian Vein, Guidance (ICD-10-PCS; 2022-12-29)
DX: I13.0 Hypertensive heart and chronic kidney disease with heart failure and stage 1 through stage 4 chronic kidney disease, or unspecified chronic kidney disease (principal); J96.21 Acute and chronic respiratory failure with hypoxia; I21.4 Non-ST elevation (NSTEMI) myocardial infarction; N17.9 Acute kidney failure, unspecified; J15.9 Unspecified bacterial pneumonia; I42.9 Cardiomyopathy, unspecified; N18.5 Chronic kidney disease, stage 5; D64.9 Anemia, unspecified; E11.21 Type 2 diabetes mellitus with diabetic nephropathy; I50.33 Acute on chronic diastolic (congestive) heart failure; E11.22 Type 2 diabetes mellitus with diabetic chronic kidney disease; I16.0 Hypertensive urgency; E78.5 Hyperlipidemia, unspecified; I25.10 Atherosclerotic heart disease of native coronary artery without angina pectoris; I25.2 Old myocardial infarction; Z86.73 Personal history of transient ischemic attack (TIA), and cerebral infarction without residual deficits
CPT/HCPCS: 36415; 36600; 71045-TC; 76770-TC; 80048-TC; 80053-TC; 80061-TC; 81001; 82550-TC; 82570-TC; 82962-TC; 83605-TC; 83735-TC; 83880; 83970; 84100-TC; 84155; 84165; 84300-TC; 84484-TC; 85025-TC; 86850-TC; 87040-TC; 93307-TC; 94799-TC; A4223; G0378; J0360; J0456; J0696; J1644; J1815; J2930; J3490; J7050; J7060; P9016

== ENCOUNTER 2023-01-05 02:31 | Inpatient (IN) | payer OTHER ==
[~2023-01-05] VITALS: Ht 154.9 cm; Wt 56.7 kg
[2023-01-05] VITALS (36 sets, daily range): BP systolic 151–187; BP diastolic 65–135; TEMP 97.6–97.8; O2SAT 99–100
[~2023-01-05 02:31] MED LIST changes: -ASPI-1169 PO; -ATOR40TA PO; -CALC667C6 PO; +CHOL100043 PO; -LISI40TA13 PO; -NIFE-34 PO; +NIFE90TA38 PO; -NPH,100I SQ
[2023-01-05 03:10] LABS: BASOPHILS # (AUTO) 0.1 K/uL (0.0-0.2); BASOPHILS % (AUTO) 0.7 % (0.0-2.0); EOSINOPHILS # (AUTO) 0.3 K/uL (0.0-0.7); EOSINOPHILS % (AUTO) 2.1 % (0.0-6.0); HEMATOCRIT 25 % (33-45); HEMOGLOBIN 8.2 g/dL (11.5-14.8); LYMPHOCYTES # (AUTO) 0.7 K/uL (0.8-4.8); LYMPHOCYTES % (AUTO) 5.5 % (20.0-44.0); MEAN CORPUSCULAR HEMOGLOBIN 29 PG (26.0-33.0); MEAN CORPUSCULAR HGB CONC 33 g/dl (31.0-36.0); MEAN CORPUSCULAR VOLUME 88 fL (82-100); MONOCYTES # (AUTO) 0.3 K/uL (0.1-1.30); MONOCYTES % (AUTO) 2.4 % (2.0-12.0); NEUTROPHILS # (AUTO) 11.3 K/uL (1.8-8.9); NEUTROPHILS % (AUTO) 89.3 % (43.0-81.0); PLATELET COUNT (AUTO) 577 K/uL (150-450); RED BLOOD CELL COUNT(AUTO) 2.86 MIL/uL (4.0-5.2); WHITE BLOOD COUNT (AUTO) 12.7 K/uL (4.3-11.0)
[2023-01-05 03:22] LABS: CALCIUM, SERUM 8.7 mg/dL (8.5-10.1); CARBON DIOXIDE 24 mmol/L (21-32); CHLORIDE 102 mmol/L (98-107); CREATININE 5.7 mg/dL (0.6-1.3); GLUCOSE 129 mg/dL (74-106); POTASSIUM 3.7 mmol/L (3.5-5.1); SODIUM SERUM 141 mmol/L (136-145); UREA NITROGEN, BLOOD 73 mg/dL (7-18)
[2023-01-05 03:23] LABS: INR 0.99 (0.91-1.10); PARTIAL THROMBOPLASTIN TIME 32.8 SEC (24.3-34.3); PROTHROMBIN TIME 10.4 SECS (9.2-11.1)
[2023-01-05 03:34] LABS: ALANINE AMINOTRANSFERASE 14 U/L (12-78); ALBUMIN 3.1 g/dL (3.4-5.0); ALKALINE PHOSPHATASE 102 U/L (46-116); ASPARTATE AMINOTRANSFERASE 14 U/L (15-37); BILIRUBIN,DIRECT 0.1 mg/dL (0.0-0.2); BILIRUBIN,TOTAL 0.2 mg/dL (0.2-1.0); NT-PRO BNP > 25000 pg/mL (0-125); TOTAL PROTEIN, SERUM 7.6 g/dL (6.4-8.2)
[2023-01-05] MEDS ORDERED: ASPIRIN 325 MG TABLET ONE (03:56)
[2023-01-05] MEDS ORDERED: ASPIRIN 325 MG TABLET PO ONE (04:00)
[2023-01-05] MEDS ORDERED: FUROSEMIDE 40 MG/4 ML VIAL IV ONE (06:30)
[2023-01-05] MEDS ORDERED: ONDANSETRON HCL/PF 4 MG/2 ML VIAL IVP PRN (06:30)
[2023-01-05 06:46] LABS: ABG BASE EXCESS -4.2 mmol/L; ABG PCO2 43.9 mmHg (35.0-45.0); ABG PH 7.315 (7.350-7.450); ABG TOTAL HEMOGLOBIN 10.7 G/dL (12.0-16.0); COHb 0.3 % (0.5-1.5); MetHb 0.5 % (0.0-1.5); O2Hb 98.2 % (94.0-97.0); SITE, ABG Right Radial; VENT MODE, BG NRB MASK
[2023-01-05] MEDS ORDERED: FUROSEMIDE 40 MG/4 ML VIAL ONE (07:31)
[2023-01-05] MEDS: LABETALOL HCL (100MG) 100 MG TABLET PO SCH ×2 (09:10→21:13)
[2023-01-05] MEDS: AMLODIPINE BESYLATE 10 MG TABLET PO SCH (09:10)
[2023-01-05] MEDS: hydrALAZINE HCL IV 20 MG VIAL IV PRN (11:16)
[2023-01-05] MEDS ORDERED: LIDOCAINE 1% INJ 50 ML MDV IJ ONE (12:30)
[2023-01-05] MEDS ORDERED: HEPARIN SODIUM, PORCINE 1000 UNIT/1 ML VIAL IV ONE (12:30)
[2023-01-05] MEDS: NTG 50 MG/D5W250 ML BOTTL 250 ML IV PRN ×2 (16:03→23:18)
[2023-01-05] MEDS: ATORVASTATIN 10 MG TABLET PO SCH (21:13)
[2023-01-06] VITALS (47 sets, daily range): BP systolic 124–170; BP diastolic 51–85; TEMP 97.7–210.4; O2SAT 94–100
[2023-01-06] MEDS ORDERED: NICARDIPINE IN DEXTROSE,ISO-OS 200 ML IV ONE ×2 (01:06→05:27)
[2023-01-06] MEDS: NICARDIPINE IN NACL, ISO-OSM 200 ML IV PRN ×6 (01:08→23:19)
[2023-01-06] MEDS: HEPARIN SODIUM, PORCINE 5000 UNITS/1 ML VIAL SQ SCH ×3 (01:42→21:18)
[2023-01-06 05:46] LABS: BASOPHILS % (AUTO) 0.2 % (0.0-2.0); EOSINOPHILS # (AUTO) 0.1 K/uL (0.0-0.7); EOSINOPHILS % (AUTO) 0.7 % (0.0-6.0); HEMATOCRIT 24 % (33-45); HEMOGLOBIN 7.8 g/dL (11.5-14.8); LYMPHOCYTES # (AUTO) 0.3 K/uL (0.8-4.8); MEAN CORPUSCULAR HEMOGLOBIN 29 PG (26.0-33.0); MEAN CORPUSCULAR HGB CONC 33 g/dl (31.0-36.0); MEAN CORPUSCULAR VOLUME 88 fL (82-100); MONOCYTES # (AUTO) 0.5 K/uL (0.1-1.30); NEUTROPHILS # (AUTO) 10.4 K/uL (1.8-8.9); NEUTROPHILS % (AUTO) 92.1 % (43.0-81.0); PLATELET COUNT (AUTO) 449 K/uL (150-450); RED BLOOD CELL COUNT(AUTO) 2.74 MIL/uL (4.0-5.2); RED CELL DISTRIBUTION WIDTH 15.2 % (11.5-15.0); WHITE BLOOD COUNT (AUTO) 11.3 K/uL (4.3-11.0)
[2023-01-06 06:00] LABS: MAGNESIUM 1.8 mg/dL (1.8-2.4); PHOSPHORUS 2.5 mg/dL (2.5-4.9); POTASSIUM 2.9 mmol/L (3.5-5.1)
[2023-01-06] MEDS: ACETAMINOPHEN 325 MG TABLET PO PRN (07:55)
[2023-01-06] MEDS: LABETALOL HCL (100MG) 100 MG TABLET PO SCH ×2 (08:45→21:19)
[2023-01-06] MEDS: AMLODIPINE BESYLATE 10 MG TABLET PO SCH (08:45)
[2023-01-06 09:18] LABS: ABG BASE EXCESS 1.5 mmol/L; ABG PCO2 31.1 mmHg (35.0-45.0); ABG PH 7.511 (7.350-7.450); ABG PO2 66.7 mmHg (75.0-100.0); AaDO2 67.4 mmHg; MetHb 0.1 % (0.0-1.5); O2Hb 93.9 % (94.0-97.0); SITE, ABG Right Brachial; VENT MODE, BG N/C
[2023-01-06] MEDS ORDERED: POTASSIUM CL. PREMIX PERIPHER. 50 ML IV SCH (11:00)
[2023-01-06] MEDS: POTASSIUM CHLORIDE 20 MEQ TAB.PRT.SR PO SCH ×2 (11:01→13:21)
[2023-01-06] MEDS: NIFEdipine XL (30MG) 30 MG TAB PO SCH ×2 (18:10→21:19)
[2023-01-06] MEDS: ATORVASTATIN 10 MG TABLET PO SCH (21:20)
[2023-01-07] VITALS (26 sets, daily range): BP systolic 110–145; BP diastolic 52–78; TEMP 97.5–98.8; O2SAT 91–99
[2023-01-07] MEDS: NICARDIPINE IN NACL, ISO-OSM 200 ML IV PRN (02:50)
[2023-01-07 05:02] LABS: BASOPHILS # (AUTO) 0.1 K/uL (0.0-0.2); EOSINOPHILS # (AUTO) 0.3 K/uL (0.0-0.7); EOSINOPHILS % (AUTO) 4.2 % (0.0-6.0); HEMATOCRIT 22 % (33-45); HEMOGLOBIN 7.3 g/dL (11.5-14.8); LYMPHOCYTES # (AUTO) 0.7 K/uL (0.8-4.8); LYMPHOCYTES % (AUTO) 8.9 % (20.0-44.0); MEAN CORPUSCULAR HEMOGLOBIN 29 PG (26.0-33.0); MEAN CORPUSCULAR HGB CONC 33 g/dl (31.0-36.0); MEAN CORPUSCULAR VOLUME 89 fL (82-100); MONOCYTES # (AUTO) 0.4 K/uL (0.1-1.30); MONOCYTES % (AUTO) 5.2 % (2.0-12.0); NEUTROPHILS # (AUTO) 6.1 K/uL (1.8-8.9); NEUTROPHILS % (AUTO) 80.7 % (43.0-81.0); PLATELET COUNT (AUTO) 376 K/uL (150-450); RED BLOOD CELL COUNT(AUTO) 2.51 MIL/uL (4.0-5.2); RED CELL DISTRIBUTION WIDTH 14.9 % (11.5-15.0); WHITE BLOOD COUNT (AUTO) 7.5 K/uL (4.3-11.0)
[2023-01-07 05:17] LABS: CALCIUM, SERUM 8.5 mg/dL (8.5-10.1); CREATININE 2.5 mg/dL (0.6-1.3); POTASSIUM 3.6 mmol/L (3.5-5.1)
[2023-01-07] MEDS: NIFEdipine XL (30MG) 30 MG TAB PO SCH ×2 (11:36→21:23)
[2023-01-07] MEDS: LABETALOL HCL (100MG) 100 MG TABLET PO SCH ×2 (11:36→21:23)
[2023-01-07] MEDS: HEPARIN SODIUM, PORCINE 5000 UNITS/1 ML VIAL SQ SCH ×2 (11:37→21:00)
[2023-01-07] MEDS: ATORVASTATIN 10 MG TABLET PO SCH (21:23)
[2023-01-08] VITALS: BP 139/57; TEMP 98.1; O2SAT 97
[2023-01-08 05:00] VITALS: BP 140/57; O2SAT 96
[2023-01-08 08:00] VITALS: BP 139/72; TEMP 98.2; O2SAT 97
[2023-01-08 08:54] LABS: BASOPHILS # (AUTO) 0.1 K/uL (0.0-0.2); BASOPHILS % (AUTO) 0.7 % (0.0-2.0); EOSINOPHILS # (AUTO) 0.2 K/uL (0.0-0.7); EOSINOPHILS % (AUTO) 2.9 % (0.0-6.0); HEMATOCRIT 23 % (33-45); HEMOGLOBIN 7.4 g/dL (11.5-14.8); LYMPHOCYTES % (AUTO) 12.4 % (20.0-44.0); MEAN CORPUSCULAR HEMOGLOBIN 29 PG (26.0-33.0); MEAN CORPUSCULAR HGB CONC 32 g/dl (31.0-36.0); MEAN CORPUSCULAR VOLUME 90 fL (82-100); MONOCYTES # (AUTO) 0.4 K/uL (0.1-1.30); MONOCYTES % (AUTO) 5.5 % (2.0-12.0); NEUTROPHILS # (AUTO) 6.2 K/uL (1.8-8.9); NEUTROPHILS % (AUTO) 78.5 % (43.0-81.0); PLATELET COUNT (AUTO) 355 K/uL (150-450); RED BLOOD CELL COUNT(AUTO) 2.56 MIL/uL (4.0-5.2); RED CELL DISTRIBUTION WIDTH 15.2 % (11.5-15.0); WHITE BLOOD COUNT (AUTO) 7.9 K/uL (4.3-11.0)
[2023-01-08 09:00] LABS: CALCIUM, SERUM 9.3 mg/dL (8.5-10.1); CREATININE 2.9 mg/dL (0.6-1.3)
[2023-01-08] MEDS: HEPARIN SODIUM, PORCINE 5000 UNITS/1 ML VIAL SQ SCH ×2 (09:00→20:43)
[2023-01-08] MEDS: NIFEdipine XL (30MG) 30 MG TAB PO SCH ×2 (09:09→20:25)
[2023-01-08] MEDS: LABETALOL HCL (100MG) 100 MG TABLET PO SCH ×2 (09:09→20:25)
[2023-01-08 12:00] VITALS: BP 140/66; TEMP 98.4; O2SAT 96
[2023-01-08 16:00] VITALS: BP 146/72; TEMP 98.7; O2SAT 96
[2023-01-08 20:00] VITALS: BP 148/69; TEMP 98.1; O2SAT 96
[2023-01-08] MEDS: ATORVASTATIN 10 MG TABLET PO SCH (21:34)
[2023-01-09] VITALS: BP 145/63; TEMP 97.8; O2SAT 93
[2023-01-09 03:07] LABS: HEPATITIS B SURFACE AB Reactive (.)
[2023-01-09 08:00] VITALS: BP 155/67; TEMP 98.2; O2SAT 96
[2023-01-09] MEDS: LABETALOL HCL (100MG) 100 MG TABLET PO SCH ×2 (09:08→21:32)
[2023-01-09] MEDS: NIFEdipine XL (30MG) 30 MG TAB PO SCH ×2 (09:08→21:31)
[2023-01-09] MEDS: HEPARIN SODIUM, PORCINE 5000 UNITS/1 ML VIAL SQ SCH ×2 (09:09→21:00)
[2023-01-09 12:00] VITALS: BP 149/64; TEMP 99; O2SAT 96
[2023-01-09 16:00] VITALS: BP 150/66; TEMP 98.8; O2SAT 96
[2023-01-09 20:00] VITALS: BP 149/57; TEMP 98.3; O2SAT 88
[2023-01-09] MEDS: ATORVASTATIN 10 MG TABLET PO SCH (21:32)
[2023-01-09] MEDS: ACETAMINOPHEN 325 MG TABLET PO PRN (23:15)
[2023-01-10 03:06] LABS: HEPATITIS B CORE AB, IgM Negative (Negative); HEPATITIS B CORE AB, TOTAL Negative (Negative)
[2023-01-10 04:00] VITALS: BP 157/66; TEMP 98.1; O2SAT 96
[2023-01-10 05:52] LABS: BASOPHILS % (AUTO) 0.5 % (0.0-2.0); EOSINOPHILS # (AUTO) 0.2 K/uL (0.0-0.7); EOSINOPHILS % (AUTO) 2.3 % (0.0-6.0); HEMATOCRIT 21 % (33-45); LYMPHOCYTES # (AUTO) 0.8 K/uL (0.8-4.8); LYMPHOCYTES % (AUTO) 8.4 % (20.0-44.0); MEAN CORPUSCULAR HEMOGLOBIN 29 PG (26.0-33.0); MEAN CORPUSCULAR HGB CONC 33 g/dl (31.0-36.0); MEAN CORPUSCULAR VOLUME 89 fL (82-100); MONOCYTES # (AUTO) 0.3 K/uL (0.1-1.30); MONOCYTES % (AUTO) 3.2 % (2.0-12.0); NEUTROPHILS # (AUTO) 8.3 K/uL (1.8-8.9); NEUTROPHILS % (AUTO) 85.6 % (43.0-81.0); PLATELET COUNT (AUTO) 309 K/uL (150-450); WHITE BLOOD COUNT (AUTO) 9.7 K/uL (4.3-11.0)
[2023-01-10 06:13] LABS: ALBUMIN 2.6 g/dL (3.4-5.0); BILIRUBIN,TOTAL 0.3 mg/dL (0.2-1.0); CALCIUM, SERUM 8.2 mg/dL (8.5-10.1); CREATININE 4.2 mg/dL (0.6-1.3); MAGNESIUM 2.2 mg/dL (1.8-2.4); PHOSPHORUS 4.9 mg/dL (2.5-4.9); POTASSIUM 3.8 mmol/L (3.5-5.1); TOTAL PROTEIN, SERUM 6.5 g/dL (6.4-8.2)
[2023-01-10 08:00] VITALS: BP 137/68; TEMP 96.8; O2SAT 97
[2023-01-10] MEDS: HEPARIN SODIUM, PORCINE 5000 UNITS/1 ML VIAL SQ SCH ×2 (09:00→22:00)
[2023-01-10] MEDS: LABETALOL HCL (100MG) 100 MG TABLET PO SCH ×2 (09:03→21:15)
[2023-01-10] MEDS: NIFEdipine XL (30MG) 30 MG TAB PO SCH ×2 (09:03→21:14)
[2023-01-10] MEDS ORDERED: CELLULOSE,OXIDIZED 1 EACH EACH MC ONE ×2 (09:36→09:37)
[2023-01-10] MEDS ORDERED: IOHEXOL 0 ML IV ONE (09:36)
[2023-01-10] MEDS ORDERED: LIDOCAINE HCL/MPF 1% 30 ML VIAL IJ ONE ×2 (09:36→11:33)
[2023-01-10] MEDS ORDERED: CELLULOSE,OXIDIZED 1 PKT EACH MC ONE (09:37)
[2023-01-10] MEDS ORDERED: HEMOSTATIC MATRIX 8 ML 1 EACH PAD MC ONE (09:37)
[2023-01-10] MEDS ORDERED: HEPARIN SODIUM, PORCINE 1,000 UNIT/ML VIAL ONE (09:39)
[2023-01-10] MEDS ORDERED: FENTANYL PF 250MCG/5ML AMPUL ONE (10:28)
[2023-01-10] MEDS ORDERED: HEPARIN SODIUM, PORCINE 5000 UNITS/1 ML VIAL ONE (10:29)
[2023-01-10] MEDS ORDERED: protAMINE SULFATE 10 MG/ML VIAL IV ONE (10:29)
[2023-01-10 12:00] VITALS: BP 133/61; TEMP 98.4; O2SAT 97
[2023-01-10] MEDS ORDERED: ONDANSETRON HCL/PF 4 MG/2 ML VIAL ONE ×2 (12:58→13:16)
[2023-01-10] MEDS ORDERED: METOCLOPRAMIDE HCL 10 MG/2 ML VIAL ONE (13:48)
[2023-01-10 16:00] VITALS: BP 160/63; TEMP 96.8; O2SAT 98
[2023-01-10] MEDS: PROSOURCE / PROSTAT (PYXIS) 30 ML UDC PO SCH (17:51)
[2023-01-10] MEDS: ACETAMINOPHEN 325 MG TABLET PO PRN (17:57)
[2023-01-10 20:00] VITALS: BP 191/84; TEMP 97.9; O2SAT 100; O2SAT 99
[2023-01-10] MEDS: ANCEF 1 GM/50 ML D5W IV SCH ×2 (20:50)
[2023-01-10] MEDS: ATORVASTATIN 10 MG TABLET PO SCH (21:14)
[2023-01-10] MEDS: hydrALAZINE HCL IV 20 MG VIAL IV PRN (23:08)
[2023-01-11] VITALS (10 sets, daily range): BP systolic 121–169; BP diastolic 64–78; TEMP 97.8–98.8; O2SAT 95–100
[2023-01-11] MEDS: ANCEF 1 GM/50 ML D5W IV SCH ×2 (04:23)
[2023-01-11] MEDS: hydrALAZINE HCL IV 20 MG VIAL IV PRN ×2 (05:04→15:52)
[2023-01-11] MEDS: ACETAMINOPHEN 325 MG TABLET PO PRN ×2 (05:17→08:55)
[2023-01-11 06:07] LABS: BASOPHILS % (AUTO) 0.4 % (0.0-2.0); EOSINOPHILS # (AUTO) 0.2 K/uL (0.0-0.7); EOSINOPHILS % (AUTO) 1.7 % (0.0-6.0); HEMATOCRIT 21 % (33-45); LYMPHOCYTES # (AUTO) 0.8 K/uL (0.8-4.8); LYMPHOCYTES % (AUTO) 7.1 % (20.0-44.0); MEAN CORPUSCULAR HEMOGLOBIN 29 PG (26.0-33.0); MEAN CORPUSCULAR HGB CONC 33 g/dl (31.0-36.0); MEAN CORPUSCULAR VOLUME 89 fL (82-100); MONOCYTES # (AUTO) 0.4 K/uL (0.1-1.30); MONOCYTES % (AUTO) 3.5 % (2.0-12.0); NEUTROPHILS # (AUTO) 9.4 K/uL (1.8-8.9); NEUTROPHILS % (AUTO) 87.3 % (43.0-81.0); PLATELET COUNT (AUTO) 283 K/uL (150-450); RED BLOOD CELL COUNT(AUTO) 2.38 MIL/uL (4.0-5.2); RED CELL DISTRIBUTION WIDTH 15.3 % (11.5-15.0); WHITE BLOOD COUNT (AUTO) 10.7 K/uL (4.3-11.0)
[2023-01-11 07:24] LABS: CALCIUM, SERUM 8.2 mg/dL (8.5-10.1); CREATININE 4.5 mg/dL (0.6-1.3); PHOSPHORUS 5.5 mg/dL (2.5-4.9); POTASSIUM 4.1 mmol/L (3.5-5.1)
[2023-01-11] MEDS: NIFEdipine XL (30MG) 30 MG TAB PO SCH ×2 (08:56→20:47)
[2023-01-11] MEDS: PROSOURCE / PROSTAT (PYXIS) 30 ML UDC PO SCH ×2 (08:56→17:43)
[2023-01-11] MEDS: LABETALOL HCL (100MG) 100 MG TABLET PO SCH ×2 (08:56→20:47)
[2023-01-11] MEDS: HEPARIN SODIUM, PORCINE 5000 UNITS/1 ML VIAL SQ SCH ×2 (09:00→21:00)
[2023-01-11 09:12] LABS: CREATININE, URINE 128.3 MG/DL (30.0-125.0); URINE TOTAL PROTEIN 320.1 mg/dL (0-11.9)
[2023-01-11] MEDS: ATORVASTATIN 10 MG TABLET PO SCH (21:31)
[2023-01-12] VITALS: BP 156/71; TEMP 98.1; O2SAT 97
[2023-01-12 04:50] VITALS: BP 152/72; TEMP 98; O2SAT 98
[2023-01-12 05:51] LABS: BASOPHILS # (AUTO) 0.1 K/uL (0.0-0.2); BASOPHILS % (AUTO) 0.8 % (0.0-2.0); EOSINOPHILS # (AUTO) 0.2 K/uL (0.0-0.7); EOSINOPHILS % (AUTO) 1.8 % (0.0-6.0); HEMATOCRIT 25 % (33-45); HEMOGLOBIN 8.3 g/dL (11.5-14.8); LYMPHOCYTES # (AUTO) 0.7 K/uL (0.8-4.8); LYMPHOCYTES % (AUTO) 6.6 % (20.0-44.0); MEAN CORPUSCULAR HEMOGLOBIN 30 PG (26.0-33.0); MEAN CORPUSCULAR HGB CONC 33 g/dl (31.0-36.0); MEAN CORPUSCULAR VOLUME 91 fL (82-100); MONOCYTES # (AUTO) 0.5 K/uL (0.1-1.30); MONOCYTES % (AUTO) 4.8 % (2.0-12.0); NEUTROPHILS # (AUTO) 8.7 K/uL (1.8-8.9); PLATELET COUNT (AUTO) 242 K/uL (150-450); RED BLOOD CELL COUNT(AUTO) 2.79 MIL/uL (4.0-5.2); RED CELL DISTRIBUTION WIDTH 15.5 % (11.5-15.0); WHITE BLOOD COUNT (AUTO) 10.2 K/uL (4.3-11.0)
[2023-01-12 06:04] LABS: ALANINE AMINOTRANSFERASE < 6 U/L (12-78); ALBUMIN 2.6 g/dL (3.4-5.0); ALKALINE PHOSPHATASE 95 U/L (46-116); ASPARTATE AMINOTRANSFERASE 7 U/L (15-37); BILIRUBIN,TOTAL 0.4 mg/dL (0.2-1.0); CALCIUM, SERUM 8.3 mg/dL (8.5-10.1); CARBON DIOXIDE 25 mmol/L (21-32); CHLORIDE 107 mmol/L (98-107); GLUCOSE 109 mg/dL (74-106); MAGNESIUM 2.1 mg/dL (1.8-2.4); PHOSPHORUS 3.6 mg/dL (2.5-4.9); POTASSIUM 3.7 mmol/L (3.5-5.1); SODIUM SERUM 139 mmol/L (136-145); TOTAL PROTEIN, SERUM 6.3 g/dL (6.4-8.2); UREA NITROGEN, BLOOD 21 mg/dL (7-18)
[2023-01-12 08:00] VITALS: BP 164/68; TEMP 98.8; O2SAT 96
[2023-01-12] MEDS: PROSOURCE / PROSTAT (PYXIS) 30 ML UDC PO SCH (09:51)
[2023-01-12 09:52] VITALS: BP 164/68
[2023-01-12] MEDS: LABETALOL HCL (100MG) 100 MG TABLET PO SCH (09:52)
[2023-01-12] MEDS: NIFEdipine XL (30MG) 30 MG TAB PO SCH (09:52)
[2023-01-12] MEDS: HEPARIN SODIUM, PORCINE 5000 UNITS/1 ML VIAL SQ SCH (09:53)
== END 2023-01-12 13:51 | disposition home or self-care (01) | DRG 180 ==
LOC: ER 02:39 → ICU 07:43 → TELE 01-07 18:59
PROVIDERS: ADMIT Internal Medicine
PROC: 5A1D70Z Performance of Urinary Filtration, Intermittent, Less than 6 Hours Per Day (ICD-10-PCS; principal; 2023-01-05)
PROC: 5A09457 Assistance with Respiratory Ventilation, 24-96 Consecutive Hours, Continuous Positive Airway Pressure (ICD-10-PCS; 2023-01-05)
PROC: 02H633Z Insertion of Infusion Device into Right Atrium, Percutaneous Approach (ICD-10-PCS; 2023-01-06)
PROC: B548ZZA Ultrasonography of Superior Vena Cava, Guidance (ICD-10-PCS; 2023-01-06)
PROC: 031C3ZF Bypass Left Radial Artery to Lower Arm Vein, Percutaneous Approach (ICD-10-PCS; 2023-01-10)
PROC: 0JH63XZ Insertion of Tunneled Vascular Access Device into Chest Subcutaneous Tissue and Fascia, Percutaneous Approach (ICD-10-PCS; 2023-01-10)
PROC: 02HV33Z Insertion of Infusion Device into Superior Vena Cava, Percutaneous Approach (ICD-10-PCS; 2023-01-10)
PROC: B518YZA Fluoroscopy of Superior Vena Cava using Other Contrast, Guidance (ICD-10-PCS; 2023-01-10)
PROC: 30233N1 Transfusion of Nonautologous Red Blood Cells into Peripheral Vein, Percutaneous Approach (ICD-10-PCS; 2023-01-11)
DX: I13.2 Hypertensive heart and chronic kidney disease with heart failure and with stage 5 chronic kidney disease, or end stage renal disease (principal); J96.21 Acute and chronic respiratory failure with hypoxia; I21.A1 Myocardial infarction type 2; G92.8 Other toxic encephalopathy; D63.8 Anemia in other chronic diseases classified elsewhere; N18.6 End stage renal disease; N17.9 Acute kidney failure, unspecified; I50.33 Acute on chronic diastolic (congestive) heart failure; E11.22 Type 2 diabetes mellitus with diabetic chronic kidney disease; I16.0 Hypertensive urgency; E78.5 Hyperlipidemia, unspecified; I25.10 Atherosclerotic heart disease of native coronary artery without angina pectoris; Z79.4 Long term (current) use of insulin; Z86.73 Personal history of transient ischemic attack (TIA), and cerebral infarction without residual deficits; Z99.2 Dependence on renal dialysis; Z20.822 Contact with and (suspected) exposure to COVID-19; I25.2 Old myocardial infarction
CPT/HCPCS: 36415; 36600; 71045-TC; 80048-TC; 80053-TC; 80076-TC; 82570-TC; 82962-TC; 83735-TC; 83880; 84100-TC; 84484-TC; 85025-TC; 85730-TC; 86704; 86705; 86706; 86803; 86850-TC; 87340; 90935-TC; A4223; A6209; C1750; G0378; J0360; J0690; J1644; J1940; J2405; J2704; J2720; J2765; J3010; J3490; J7030; J7050; J7060; P9016; Q9967

== ENCOUNTER 2023-01-16 07:47 | Inpatient (IN) | payer OTHER ==
[2023-01-16] VITALS (15 sets, daily range): BP systolic 162–209; BP diastolic 55–81; TEMP 97.5–98.4; O2SAT 97–100
[~2023-01-16] VITALS: Ht 154.9 cm; Wt 51.7 kg
[2023-01-16] MEDS ORDERED: FUROSEMIDE 40 MG/4 ML VIAL IV ONE (08:00)
[2023-01-16] MEDS ORDERED: FUROSEMIDE 40 MG/4 ML VIAL ONE (08:15)
[2023-01-16 08:38] LABS: BASOPHILS # (AUTO) 0.1 K/uL (0.0-0.2); BASOPHILS % (AUTO) 0.9 % (0.0-2.0); EOSINOPHILS # (AUTO) 0.4 K/uL (0.0-0.7); EOSINOPHILS % (AUTO) 3.4 % (0.0-6.0); HEMATOCRIT 29 % (33-45); HEMOGLOBIN 9.2 g/dL (11.5-14.8); LYMPHOCYTES # (AUTO) 1.3 K/uL (0.8-4.8); LYMPHOCYTES % (AUTO) 9.5 % (20.0-44.0); MEAN CORPUSCULAR HEMOGLOBIN 29 PG (26.0-33.0); MEAN CORPUSCULAR HGB CONC 32 g/dl (31.0-36.0); MEAN CORPUSCULAR VOLUME 89 fL (82-100); MONOCYTES # (AUTO) 0.6 K/uL (0.1-1.30); MONOCYTES % (AUTO) 4.6 % (2.0-12.0); NEUTROPHILS # (AUTO) 10.8 K/uL (1.8-8.9); NEUTROPHILS % (AUTO) 81.6 % (43.0-81.0); PLATELET COUNT (AUTO) 362 K/uL (150-450); RED BLOOD CELL COUNT(AUTO) 3.19 MIL/uL (4.0-5.2); RED CELL DISTRIBUTION WIDTH 14.9 % (11.5-15.0); WHITE BLOOD COUNT (AUTO) 13.2 K/uL (4.3-11.0)
[2023-01-16 08:47] LABS: CARBON DIOXIDE 26 mmol/L (21-32); CHLORIDE 101 mmol/L (98-107); CREATININE 3.9 mg/dL (0.6-1.3); GLUCOSE 169 mg/dL (74-106); POTASSIUM 4.3 mmol/L (3.5-5.1); SODIUM SERUM 139 mmol/L (136-145); UREA NITROGEN, BLOOD 36 mg/dL (7-18)
[2023-01-16 08:53] LABS: ALANINE AMINOTRANSFERASE 9 U/L (12-78); ALBUMIN 3.4 g/dL (3.4-5.0); ALKALINE PHOSPHATASE 116 U/L (46-116); ASPARTATE AMINOTRANSFERASE 22 U/L (15-37); BILIRUBIN,DIRECT 0.1 mg/dL (0.0-0.2); BILIRUBIN,TOTAL 0.6 mg/dL (0.2-1.0); TOTAL PROTEIN, SERUM 7.9 g/dL (6.4-8.2)
[2023-01-16] MEDS ORDERED: BLOO-668 IN (09:16)
[2023-01-16] MEDS ORDERED: ATOR80TA PO (09:16)
[2023-01-16] MEDS ORDERED: MORPHINE SULFATE INJ 2 MG/ML DISP.SYRIN IV PRN (09:30)
[2023-01-16] MEDS ORDERED: hydrALAZINE HCL IV 20 MG VIAL IV PRN (09:30)
[2023-01-16] MEDS ORDERED: ACETAMINOPHEN 325 MG TABLET PO PRN (09:30)
[2023-01-16] MEDS ORDERED: ALBUTEROL FS 2.5 MG/0.5 ML VIAL.NEB NEB PRN (09:30)
[2023-01-16] MEDS: ALBUTEROL FS 2.5 MG/3 ML VIAL.NEB NEB SCH ×2 (12:52→19:54)
[2023-01-16] MEDS: IPRATROPIUM NEB FS 0.5 MG/2.5 ML AMPUL.NEB NEB SCH ×2 (12:52→19:54)
[2023-01-16] MEDS: CEFEPIME 1 GM in IV D5W 50 ML IV SCH (13:45)
[2023-01-16 14:21] LABS: ABG BASE EXCESS 1.9 mmol/L; ABG OXYGEN SATURATION 98.1 % (92.0-98.5); ABG PCO2 45.6 mmHg (35.0-45.0); ABG PH 7.392 (7.350-7.450); ABG PO2 118.7 mmHg (75.0-100.0); ABG TOTAL HEMOGLOBIN 9.5 G/dL (12.0-16.0); COHb 0.3 % (0.5-1.5); MetHb 0.3 % (0.0-1.5); O2Hb 97.5 % (94.0-97.0)
[2023-01-16 14:50] LABS: APPEARANCE,URINE CLEAR (CLEAR); BILIRUBIN,URINE NEGATIVE (NEGATIVE); BLOOD, URINE TRACE-INTA Ery/uL (NEGATIVE); KETONES,URINE NEGATIVE (NEGATIVE); LEUKOCYTE ESTERASE ,URINE NEGATIVE (NEGATIVE); NITRITE, URINE NEGATIVE (NEGATIVE); PROTEIN,URINE 2+ mg/dl (NEGATIVE); UGLUCOSE NEGATIVE (NEGATIVE); UROBILINOGEN,URINE 0.2 EU/dL (0.2)
[2023-01-16 14:57] LABS: COLOR,URINE LIGHT YELLOW (YELLOW)
[2023-01-16 15:20] LABS: ADD URINE CULTURE NO; BACTERIA,URINE Rare /HPF (None Seen); RBC,URINE 0-2 /HPF (0-2); WBC,URINE 0-2 /HPF (0-3)
[2023-01-16 15:21] LABS: SQUAMOUS EPITHELIAL CELL,UR Rare /HPF (None Seen)
[2023-01-16] MEDS ORDERED: BUMETANIDE INJ 0.25 MG/ML VIAL IV ONE (17:00)
[2023-01-16] MEDS ORDERED: VANCOMYCIN 1 GM in IV D5W 250 ML IV SCH (18:00)
[2023-01-16] MEDS ORDERED: METOPROLOL SUCCINATE 25 MG TAB.SR.24H PO ONE (18:00)
[2023-01-16] MEDS ORDERED: NIFEdipine XL (30MG) 30 MG TAB PO ONE (18:00)
[2023-01-16] MEDS: hydrALAZINE HCL IV 20 MG VIAL IV PRN ×2 (19:07→22:30)
[2023-01-16] MEDS: HEPARIN SODIUM, PORCINE 5000 UNITS/1 ML VIAL SQ SCH (21:17)
[2023-01-17] VITALS (28 sets, daily range): BP systolic 105–170; BP diastolic 51–75; TEMP 98.2–99.5; O2SAT 97–100
[2023-01-17] MEDS: IPRATROPIUM NEB FS 0.5 MG/2.5 ML AMPUL.NEB NEB SCH ×4 (01:51→19:44)
[2023-01-17] MEDS: ALBUTEROL FS 2.5 MG/3 ML VIAL.NEB NEB SCH ×4 (01:51→19:44)
[2023-01-17 04:32] LABS: BASOPHILS % (AUTO) 0.7 % (0.0-2.0); EOSINOPHILS # (AUTO) 0.2 K/uL (0.0-0.7); EOSINOPHILS % (AUTO) 2.7 % (0.0-6.0); HEMATOCRIT 23 % (33-45); HEMOGLOBIN 7.7 g/dL (11.5-14.8); LYMPHOCYTES # (AUTO) 0.6 K/uL (0.8-4.8); MEAN CORPUSCULAR HEMOGLOBIN 30 PG (26.0-33.0); MEAN CORPUSCULAR HGB CONC 34 g/dl (31.0-36.0); MEAN CORPUSCULAR VOLUME 89 fL (82-100); MONOCYTES # (AUTO) 0.5 K/uL (0.1-1.30); MONOCYTES % (AUTO) 7.1 % (2.0-12.0); NEUTROPHILS % (AUTO) 79.5 % (43.0-81.0); PLATELET COUNT (AUTO) 250 K/uL (150-450); RED BLOOD CELL COUNT(AUTO) 2.58 MIL/uL (4.0-5.2); RED CELL DISTRIBUTION WIDTH 14.7 % (11.5-15.0); WHITE BLOOD COUNT (AUTO) 6.3 K/uL (4.3-11.0)
[2023-01-17 04:44] LABS: ALBUMIN 2.9 g/dL (3.4-5.0); BILIRUBIN,TOTAL 0.5 mg/dL (0.2-1.0); CREATININE 2.8 mg/dL (0.6-1.3); MAGNESIUM 1.9 mg/dL (1.8-2.4); PHOSPHORUS 3.4 mg/dL (2.5-4.9); POTASSIUM 3.5 mmol/L (3.5-5.1); TOTAL PROTEIN, SERUM 6.4 g/dL (6.4-8.2)
[2023-01-17] MEDS: hydrALAZINE HCL IV 20 MG VIAL IV PRN (07:40)
[2023-01-17] MEDS: NIFEdipine XL (30MG) 30 MG TAB PO SCH (08:09)
[2023-01-17] MEDS: METOPROLOL SUCCINATE 25 MG TAB.SR.24H PO SCH (08:10)
[2023-01-17] MEDS: CHOLECALCIFEROL 1,000 UNIT TABLET (VIT D3) PO SCH (08:10)
[2023-01-17] MEDS: HEPARIN SODIUM, PORCINE 5000 UNITS/1 ML VIAL SQ SCH ×2 (08:11→21:15)
[2023-01-17] MEDS: PROSOURCE / PROSTAT (PYXIS) 30 ML UDC PO SCH ×2 (12:29→16:23)
[2023-01-17] MEDS ORDERED: ALTEPLASE CATHFLO 2 MG/VIAL IJ ONE (12:30)
[2023-01-17] MEDS ORDERED: VANCOMYCIN 500 MG in IV D5W 100 ML IV PRN (13:00)
[2023-01-17] MEDS: CEFEPIME 1 GM in IV D5W 50 ML IV SCH (16:22)
[2023-01-17] MEDS ORDERED: VANCOMYCIN 1 GM in IV D5W 250 ML IV ONE (18:00)
[2023-01-17 18:26] LABS: HEMOGLOBIN 8.8 g/dL (11.5-14.8)
[2023-01-18] VITALS (17 sets, daily range): BP systolic 125–177; BP diastolic 53–67; TEMP 98.1–99.1; O2SAT 94–100
[2023-01-18] MEDS: IPRATROPIUM NEB FS 0.5 MG/2.5 ML AMPUL.NEB NEB SCH ×4 (01:28→19:57)
[2023-01-18] MEDS: ALBUTEROL FS 2.5 MG/3 ML VIAL.NEB NEB SCH ×4 (01:28→19:57)
[2023-01-18 06:47] LABS: BASOPHILS # (AUTO) 0.1 K/uL (0.0-0.2); BASOPHILS % (AUTO) 0.8 % (0.0-2.0); EOSINOPHILS # (AUTO) 0.4 K/uL (0.0-0.7); EOSINOPHILS % (AUTO) 5.5 % (0.0-6.0); LYMPHOCYTES # (AUTO) 0.9 K/uL (0.8-4.8); LYMPHOCYTES % (AUTO) 11.8 % (20.0-44.0); MEAN CORPUSCULAR HEMOGLOBIN 29 PG (26.0-33.0); MEAN CORPUSCULAR HGB CONC 33 g/dl (31.0-36.0); MEAN CORPUSCULAR VOLUME 89 fL (82-100); MONOCYTES # (AUTO) 0.7 K/uL (0.1-1.30); MONOCYTES % (AUTO) 9.5 % (2.0-12.0); NEUTROPHILS # (AUTO) 5.3 K/uL (1.8-8.9); NEUTROPHILS % (AUTO) 72.4 % (43.0-81.0); PLATELET COUNT (AUTO) 319 K/uL (150-450); RED BLOOD CELL COUNT(AUTO) 2.28 MIL/uL (4.0-5.2); RED CELL DISTRIBUTION WIDTH 14.8 % (11.5-15.0); WHITE BLOOD COUNT (AUTO) 7.3 K/uL (4.3-11.0)
[2023-01-18 07:05] LABS: HEMATOCRIT 20 % (33-45); HEMOGLOBIN 6.7 g/dL (11.5-14.8)
[2023-01-18 07:20] LABS: CALCIUM, SERUM 8.5 mg/dL (8.5-10.1); CREATININE 2.6 mg/dL (0.6-1.3); POTASSIUM 3.3 mmol/L (3.5-5.1)
[2023-01-18 07:30] LABS: IRON, SERUM 51 ug/dl (50-175); TOTAL IRON BINDING CAPACITY 213 ug/dl (250-450)
[2023-01-18 07:41] LABS: FERRITIN 767 ng/mL (8-388)
[2023-01-18] MEDS: CHOLECALCIFEROL 1,000 UNIT TABLET (VIT D3) PO SCH (08:51)
[2023-01-18] MEDS: NIFEdipine XL (30MG) 30 MG TAB PO SCH (08:54)
[2023-01-18] MEDS: METOPROLOL SUCCINATE 25 MG TAB.SR.24H PO SCH (08:54)
[2023-01-18] MEDS: HEPARIN SODIUM, PORCINE 5000 UNITS/1 ML VIAL SQ SCH ×2 (08:55→21:00)
[2023-01-18] MEDS: PROSOURCE / PROSTAT (PYXIS) 30 ML UDC PO SCH ×3 (08:57→17:00)
[2023-01-18 11:59] LABS: ANISOCYTOSIS 1+; BASOPHILS % (MANUAL) 0 % (0.0-2.0); EOSINOPHILS % (MANUAL) 4 % (0-4); HYPOCHROMASIA 1+; LYMPHOCYTES % (MANUAL) 14 % (16-48); MONOCYTES % (MANUAL) 6 % (0-11.0); NEUTROPHILS % (MANUAL) 76 (42-76); PLATELET ESTIMATE ADEQUATE
[2023-01-18] MEDS: hydrALAZINE HCL IV 20 MG VIAL IV PRN (12:37)
[2023-01-18] MEDS: CEFEPIME 1 GM in IV D5W 50 ML IV SCH (15:29)
[2023-01-18 18:08] LABS: HEMOGLOBIN 9.2 g/dL (11.5-14.8)
[2023-01-19] VITALS (11 sets, daily range): BP systolic 133–153; BP diastolic 56–94; TEMP 98.6–99.1; O2SAT 95–100
[2023-01-19] MEDS: IPRATROPIUM NEB FS 0.5 MG/2.5 ML AMPUL.NEB NEB SCH ×4 (01:26→19:58)
[2023-01-19] MEDS: ALBUTEROL FS 2.5 MG/3 ML VIAL.NEB NEB SCH ×4 (01:26→19:58)
[2023-01-19 02:27] LABS: HEMOGLOBIN 8.7 g/dL (11.5-14.8)
[2023-01-19 08:24] LABS: CREATININE 3.8 mg/dL (0.6-1.3); POTASSIUM 3.8 mmol/L (3.5-5.1)
[2023-01-19] MEDS: HEPARIN SODIUM, PORCINE 5000 UNITS/1 ML VIAL SQ SCH ×2 (09:00→21:00)
[2023-01-19 09:29] LABS: BASOPHILS % (AUTO) 0.4 % (0.0-2.0); EOSINOPHILS # (AUTO) 0.3 K/uL (0.0-0.7); EOSINOPHILS % (AUTO) 4.9 % (0.0-6.0); HEMATOCRIT 26 % (33-45); HEMOGLOBIN 8.8 g/dL (11.5-14.8); LYMPHOCYTES # (AUTO) 0.6 K/uL (0.8-4.8); LYMPHOCYTES % (AUTO) 8.3 % (20.0-44.0); MEAN CORPUSCULAR HEMOGLOBIN 29 PG (26.0-33.0); MEAN CORPUSCULAR HGB CONC 33 g/dl (31.0-36.0); MEAN CORPUSCULAR VOLUME 86 fL (82-100); MONOCYTES # (AUTO) 0.5 K/uL (0.1-1.30); MONOCYTES % (AUTO) 6.7 % (2.0-12.0); NEUTROPHILS # (AUTO) 5.7 K/uL (1.8-8.9); NEUTROPHILS % (AUTO) 79.7 % (43.0-81.0); PLATELET COUNT (AUTO) 291 K/uL (150-450); RED BLOOD CELL COUNT(AUTO) 3.08 MIL/uL (4.0-5.2); RED CELL DISTRIBUTION WIDTH 17.8 % (11.5-15.0); WHITE BLOOD COUNT (AUTO) 7.1 K/uL (4.3-11.0)
[2023-01-19] MEDS: METOPROLOL SUCCINATE 25 MG TAB.SR.24H PO SCH (09:35)
[2023-01-19] MEDS: CHOLECALCIFEROL 1,000 UNIT TABLET (VIT D3) PO SCH (09:35)
[2023-01-19] MEDS: NIFEdipine XL (30MG) 30 MG TAB PO SCH (09:36)
[2023-01-19] MEDS: PROSOURCE / PROSTAT (PYXIS) 30 ML UDC PO SCH ×3 (09:36→16:58)
[2023-01-19] MEDS: CEFEPIME 1 GM in IV D5W 50 ML IV SCH (15:56)
[2023-01-19] MEDS ORDERED: VANCOMYCIN 1 GM in IV D5W 250ml IV ONE (16:00)
[2023-01-19 18:05] LABS: HEMOGLOBIN 9.5 g/dL (11.5-14.8)
[2023-01-20] VITALS (12 sets, daily range): BP systolic 141–205; BP diastolic 54–82; TEMP 97.7–99; O2SAT 95–100
[2023-01-20] MEDS: IPRATROPIUM NEB FS 0.5 MG/2.5 ML AMPUL.NEB NEB SCH ×4 (01:34→20:02)
[2023-01-20] MEDS: ALBUTEROL FS 2.5 MG/3 ML VIAL.NEB NEB SCH ×4 (01:34→20:02)
[2023-01-20 07:21] LABS: BASOPHILS % (AUTO) 0.5 % (0.0-2.0); EOSINOPHILS # (AUTO) 0.4 K/uL (0.0-0.7); EOSINOPHILS % (AUTO) 4.7 % (0.0-6.0); HEMATOCRIT 27 % (33-45); HEMOGLOBIN 8.9 g/dL (11.5-14.8); LYMPHOCYTES # (AUTO) 0.9 K/uL (0.8-4.8); LYMPHOCYTES % (AUTO) 11.2 % (20.0-44.0); MEAN CORPUSCULAR HEMOGLOBIN 29 PG (26.0-33.0); MEAN CORPUSCULAR HGB CONC 33 g/dl (31.0-36.0); MEAN CORPUSCULAR VOLUME 86 fL (82-100); MONOCYTES # (AUTO) 0.6 K/uL (0.1-1.30); MONOCYTES % (AUTO) 7.1 % (2.0-12.0); NEUTROPHILS # (AUTO) 6.3 K/uL (1.8-8.9); NEUTROPHILS % (AUTO) 76.5 % (43.0-81.0); PLATELET COUNT (AUTO) 283 K/uL (150-450); RED BLOOD CELL COUNT(AUTO) 3.12 MIL/uL (4.0-5.2); RED CELL DISTRIBUTION WIDTH 17.2 % (11.5-15.0); WHITE BLOOD COUNT (AUTO) 8.3 K/uL (4.3-11.0)
[2023-01-20 07:32] LABS: CALCIUM, SERUM 8.2 mg/dL (8.5-10.1); POTASSIUM 3.7 mmol/L (3.5-5.1)
[2023-01-20] MEDS: HEPARIN SODIUM, PORCINE 5000 UNITS/1 ML VIAL SQ SCH ×2 (09:00→20:35)
[2023-01-20] MEDS: NIFEdipine XL (30MG) 30 MG TAB PO SCH (09:30)
[2023-01-20] MEDS: PROSOURCE / PROSTAT (PYXIS) 30 ML UDC PO SCH ×3 (09:30→17:15)
[2023-01-20] MEDS: CHOLECALCIFEROL 1,000 UNIT TABLET (VIT D3) PO SCH (09:30)
[2023-01-20] MEDS: METOPROLOL SUCCINATE 25 MG TAB.SR.24H PO SCH (09:31)
[2023-01-20 10:38] LABS: HEMOGLOBIN 9.1 g/dL (11.5-14.8)
[2023-01-20] MEDS ORDERED: IV NS 0.9% 250 ML IV ONE (13:56)
[2023-01-20] MEDS ORDERED: CT SWABBABLE VALVE TRANS SET 1 EA INFUS.SET MC ONE (13:56)
[2023-01-20] MEDS ORDERED: IOHEXOL-350 100 ML VIAL IV ONE (13:56)
[2023-01-20] MEDS ORDERED: NITROGLYCERIN 0.4 MG/TAB BOTTLE ONE (14:00)
[2023-01-20] MEDS ORDERED: METOPROLOL TARTRATE INJ 5 MG/5 ML AMPUL ONE ×4 (14:00→14:35)
[2023-01-20] MEDS: ONDANSETRON HCL/PF 4 MG/2 ML VIAL IVP PRN ×2 (15:14→22:36)
[2023-01-20] MEDS: hydrALAZINE HCL IV 20 MG VIAL IV PRN (16:40)
[2023-01-20] MEDS ORDERED: CEFEPIME 1 GM in IV D5W 50 ML IV SCH (18:00)
[2023-01-21] VITALS (10 sets, daily range): BP systolic 144–180; BP diastolic 51–70; TEMP 97.8–98.2; O2SAT 97–100
[2023-01-21] MEDS: ALBUTEROL FS 2.5 MG/3 ML VIAL.NEB NEB SCH ×3 (01:57→13:27)
[2023-01-21] MEDS: IPRATROPIUM NEB FS 0.5 MG/2.5 ML AMPUL.NEB NEB SCH ×3 (01:57→13:27)
[2023-01-21 06:19] LABS: BASOPHILS # (AUTO) 0.1 K/uL (0.0-0.2); BASOPHILS % (AUTO) 0.8 % (0.0-2.0); EOSINOPHILS # (AUTO) 0.3 K/uL (0.0-0.7); EOSINOPHILS % (AUTO) 3.2 % (0.0-6.0); HEMATOCRIT 26 % (33-45); HEMOGLOBIN 8.3 g/dL (11.5-14.8); LYMPHOCYTES # (AUTO) 0.8 K/uL (0.8-4.8); LYMPHOCYTES % (AUTO) 9.5 % (20.0-44.0); MEAN CORPUSCULAR HEMOGLOBIN 28 PG (26.0-33.0); MEAN CORPUSCULAR HGB CONC 33 g/dl (31.0-36.0); MEAN CORPUSCULAR VOLUME 87 fL (82-100); MONOCYTES # (AUTO) 0.4 K/uL (0.1-1.30); NEUTROPHILS # (AUTO) 7.2 K/uL (1.8-8.9); NEUTROPHILS % (AUTO) 81.5 % (43.0-81.0); PLATELET COUNT (AUTO) 270 K/uL (150-450); RED BLOOD CELL COUNT(AUTO) 2.95 MIL/uL (4.0-5.2); RED CELL DISTRIBUTION WIDTH 17.4 % (11.5-15.0); WHITE BLOOD COUNT (AUTO) 8.8 K/uL (4.3-11.0)
[2023-01-21 06:53] LABS: CALCIUM, SERUM 8.5 mg/dL (8.5-10.1); CREATININE 2.7 mg/dL (0.6-1.3); POTASSIUM 3.5 mmol/L (3.5-5.1)
[2023-01-21] MEDS: CHOLECALCIFEROL 1,000 UNIT TABLET (VIT D3) PO SCH (08:44)
[2023-01-21] MEDS: PROSOURCE / PROSTAT (PYXIS) 30 ML UDC PO SCH ×2 (08:44→13:13)
[2023-01-21] MEDS: NIFEdipine XL (30MG) 30 MG TAB PO SCH (08:45)
[2023-01-21] MEDS: METOPROLOL SUCCINATE 25 MG TAB.SR.24H PO SCH (08:45)
[2023-01-21] MEDS: HEPARIN SODIUM, PORCINE 5000 UNITS/1 ML VIAL SQ SCH (09:55)
[2023-01-21] MEDS ORDERED: hydrALAZINE HCL IV 20 MG VIAL IV ONE (13:00)
== END 2023-01-21 14:50 | disposition home or self-care (01) | DRG 133 ==
LOC: ER 07:51 → ICU 11:36 → MED 01-17 17:57 → TELE 01-17 18:04
PROVIDERS: ADMIT Internal Medicine; ATTEND Internal Medicine
PROC: 5A1D70Z Performance of Urinary Filtration, Intermittent, Less than 6 Hours Per Day (ICD-10-PCS; principal; 2023-01-16)
PROC: 06H033Z Insertion of Infusion Device into Inferior Vena Cava, Percutaneous Approach (ICD-10-PCS; 2023-01-16)
PROC: B549ZZA Ultrasonography of Inferior Vena Cava, Guidance (ICD-10-PCS; 2023-01-16)
PROC: 5A09357 Assistance with Respiratory Ventilation, Less than 24 Consecutive Hours, Continuous Positive Airway Pressure (ICD-10-PCS; 2023-01-16)
PROC: 30233N1 Transfusion of Nonautologous Red Blood Cells into Peripheral Vein, Percutaneous Approach (ICD-10-PCS; 2023-01-18)
DX: J96.21 Acute and chronic respiratory failure with hypoxia (principal); I21.A1 Myocardial infarction type 2; I50.33 Acute on chronic diastolic (congestive) heart failure; D63.8 Anemia in other chronic diseases classified elsewhere; N18.6 End stage renal disease; I13.2 Hypertensive heart and chronic kidney disease with heart failure and with stage 5 chronic kidney disease, or end stage renal disease; I16.0 Hypertensive urgency; E11.22 Type 2 diabetes mellitus with diabetic chronic kidney disease; E78.5 Hyperlipidemia, unspecified; H54.8 Legal blindness, as defined in USA; I25.10 Atherosclerotic heart disease of native coronary artery without angina pectoris; I25.2 Old myocardial infarction; Z86.73 Personal history of transient ischemic attack (TIA), and cerebral infarction without residual deficits; N25.0 Renal osteodystrophy; Z99.2 Dependence on renal dialysis; D50.0 Iron deficiency anemia secondary to blood loss (chronic)
CPT/HCPCS: 36415; 36600; 71045-TC; 74018; 75574; 80048-TC; 80053-TC; 80076-TC; 80202-TC; 81001; 82607-TC; 82728-TC; 83540-TC; 83605-TC; 83735-TC; 84100-TC; 84484-TC; 85025-TC; 85027-TC; 86850-TC; 87040-TC; 90935-TC; 94799-TC; A4223; G0378; J0360; J0692; J1644; J1940; J2405; J2997; J3370; J3490; J7030; J7040; J7050; J7060; P9016; Q9967